=== PATIENT | female | born 1965 | race Two or more races ===

== ENCOUNTER 2016-09-26 12:15 | Emergency (ER) | payer MEDICAID ==
[~2016-09-26] VITALS: Ht 160 cm; Wt 77.1 kg
[~2016-09-26 12:15] MED LIST: ACETAMINOPHEN-1 EAC1 ORAL; ACETAMINOPHEN500 M3 ORAL; AMOXICILLIN500 MG ORAL; AMOXIL250 MG ORAL; BENADRYL25 MG ORAL; CEPHALEXIN500 MG ORAL; CIPRO250 MG ORAL; CIPRO500 MG PO; CIPRO500 MG/51 PO; CLINDAMYCIN HC300 MG ORAL; COLACE100 MG ORAL; CYCLOBENZAPRINE10 MG ORAL; DEBROX15 M1 BOTH EARS; FIORICET1 EA ORAL; FLEET ENEMA133 ML RECTAL; HYDROCORTISON28.4 G5 RC; IBUPROFEN600 MG ORAL; KEFLEX500 MG ORAL; LEVOTHYROXINE25 MCG ORAL; LOSARTAN POTASS25 MG ORAL; MACROBID100 MG ORAL; MAGNESIUM CITR296 M1 PO; METFORMIN HCL500 M1 ORAL; METOPROLOL SUCC25 MG ORAL; NORCO 5-325 TA1 EACH ORAL; PHENAZOPYRIDIN200 MG ORAL; TRAMADOL HCL50 MG ORAL; TYLENOL EXTRA500 MG ORAL; TYLENOL325 MG ORAL; VALACYCLOVIR500 MG ORAL; ZOFRAN ODT4 MG ORAL; [UNRECOGNIZED DRUG - OTHER] TP
[2016-09-26] MEDS ORDERED: AMOXICILLIN500 MG ORAL (12:46)
[2016-09-26] MEDS ORDERED: CORTISPORIN EAR10 ML LEFT EAR (12:46)
[2016-09-26 13:00] VITALS: BP 136/74
--- NOTE | 2016-09-26 13:13 | Emergency Room Report ---
History of Present Illness General Chief Complaint: General Complaint Source: Patient Present Illness [facility] The patient is a 51-year-old female presenting with subjective fever, left ear pain, and sore throat which all began 5 days prior. The patient states that she saw her primary care physician who prescribed her with tetracycline. The patient is unsure of the diagnosis. The patient states that she has experienced no change with the antibiotic. Pain of the left ear is described as an 8/10 dull ache it does not radiate. Cough is described as productive. Pt denies N, V, rash, abd pain, diarrhea, recent travel, CP, SOB Allergies: Coded Allergies: No Known Allergies (Unverified , 06/03/16) Patient History Past Medical History: see triage record Pertinent Family History: none Last Menstrual Period: na Reviewed Nursing Documentation: PMH: Agreed, PSxH: Agreed Nursing Documentation-PMH Past Medical History: No History, Except For Hx Hypertension: Yes Hx Pacemaker: No - HYPOTHYROIDSM Hx Diabetes: Yes Hx Cancer: No Hx Gastrointestinal Problems: Yes Hx Cerebrovascular Accident: No Review of Systems All Other Systems: negative except mentioned in HPI Physical Exam Vital Signs Date Time Temp Pulse Resp B/P Pulse Ox O2 Delivery O2 Flow Rate FiO2 09/26/16 12:23 98.1 94 18 121/78 98 Room Air Sp02 EP Interpretation: reviewed, normal General Appearance: no apparent distress, alert, GCS 15, non-toxic Head: normocephalic, atraumatic Eyes: bilateral eye PERRL, bilateral eye normal inspection ENT: hearing grossly normal, no angioedema, normal voice, uvula midline, nasal congestion, tonsillar swelling, pharyngeal erythema, tonsillar exudate, other - L ear: erythema, white DC. TTP over tragus Neck: full range of motion, supple/symm/no masses Respiratory: chest non-tender, lungs clear, normal breath sounds, no wheezing, speaking full sentences Cardiovascular #1: regular rate, rhythm, no edema Cardiovascular #2: 2+ carotid (R), 2+ carotid (L), 2+ radial (R), 2+ radial (L) , 2+ dorsalis pedis (R), 2+ dorsalis pedis (L) Gastrointestinal: normal bowel sounds, non tender, soft, non-distended, no guarding, no rebound Rectal: deferred Genitourinary: normal inspection, no CVA tenderness Musculoskeletal: back normal, gait/station normal, normal range of motion, non- tender Neurologic: alert, oriented x3, responsive, motor strength/tone normal, sensory intact, speech normal Psychiatric: judgement/insight normal, memory normal, mood/affect normal, no suicidal/homicidal ideation Reflexes: 3+ bicep (R), 3+ bicep (L), 3+ tricep (R), 3+ tricep (L), 3+ knee (R) , 3+ knee (L) Skin: normal color, no rash, warm/dry, well hydrated Lymphatic: no adenopathy Medical Decision Making PA Attestation Dr. Wolf is my supervising physician. Patient management was discussed with my supervising physician Diagnostic Impression: Primary Impression: Pharyngitis, acute Additional Impression: Otitis externa of left ear ER Course The patient is a 51-year-old female presenting with subjective fever, left ear pain, and sore throat which all began 5 days prior. Differential diagnosis include but not limited to otitis externa, otitis media, mastoiditis, sinusitis, pharyngitis PE: vitals WNL. Afebrile. NAD HEENT: L ear: erythema, white DC. TTP over tragus. Bilat tonsillar edema whit exudate. + posterior chain lymphad Lungs CTA bilat. Otherwise exam unremarkable The pt will be DC'ed home with prescription for Cortisporin for L ear otitis externa and will take amoxicillin for pharyngitis. ER precautions given Last Vital Signs Date Time Temp Pulse Resp B/P Pulse Ox O2 Delivery O2 Flow Rate FiO2 09/26/16 13:00 97.9 97 18 136/74 98 Room Air Status: improved Disposition: HOME, SELF-CARE Condition: Improved Scripts Neomycin/Polymyxin B Sulf/Hc* (CORTISPORIN EAR SOLUTION*) 10 Ml Solution 4 DROP LEFT EAR QID, #10 ML 0 Refills Prov: FELIZ DE LOS SANTOS 09/26/16 Referrals: [facility],REFERRING (PCP) Patient Instructions: Otitis Externa, Pharyngitis Additional Instructions: I discussed my findings with the patient. All questions and concerns have been answered. Treatment and medication compliance have been addressed. I advised the patient that they need to follow up with PMD in 3-5 days. Return to ED if pain remains or worsens, cough worsens or remains, you notice blood in your sputum, you notice wheezing, you experience a fever, or if needed for any reason. Patient verbalized understanding of discharge instructions. FELIZ DE LOS SANTOS Sep 26, 2016 13:13
== END 2016-09-26 13:04 | disposition home or self-care (01) ==
LOC: EMR 12:45
DX: J02.9 Acute pharyngitis, unspecified (principal); H60.92 Unspecified otitis externa, left ear; I10 Essential (primary) hypertension; E03.9 Hypothyroidism, unspecified; E11.9 Type 2 diabetes mellitus without complications
CPT/HCPCS: 99282

== ENCOUNTER 2016-10-14 08:44 | Emergency (ER) | payer MEDICAID ==
[~2016-10-14] VITALS: Ht 167.6 cm; Wt 74.8 kg
[~2016-10-14 08:44] MED LIST changes: +CORTISPORIN EAR10 ML LEFT EAR
--- NOTE | 2016-10-14 09:13 | Emergency Room Report ---
History of Present Illness General Chief Complaint: Abdominal Pain Source: Patient Present Illness HPI 51-year-old female presents to ED for evaluation. States that yesterday she noticed some left-sided flank pain radiating towards her groin. Pain is sharp, intermittent, 5/10. No other aggravating or relieving factors. Denies dysuria or hematuria. Denies nausea or vomiting. Denies fevers or chills. Patient also states that she is having persistent pain to her left ear. Was seen here earlier this month, noted to have otitis externa and was discharged on Cortisporin. Patient states she was compliant with the medications but notes persistent pain in her urine. Denies any drainage. Denies any fevers or chills. No aggravating relieving factors. Denies any other associated symptoms Allergies: Coded Allergies: IBUPROFEN (Verified Allergy, Unknown, 10/14/16) Patient History Past Medical History: DM, HTN Past Surgical History: none Pertinent Family History: none Social History: Denies: alcohol use, drug use, smoking Now: No : 3 Para: 3 Immunizations: UTD Reviewed Nursing Documentation: PMH: Agreed, PSxH: Agreed Nursing Documentation-PMH Hx Hypertension: Yes Hx Diabetes: Yes Hx Cancer: No Hx Gastrointestinal Problems: Yes Hx Cerebrovascular Accident: No Review of Systems All Other Systems: negative except mentioned in HPI Physical Exam Vital Signs Date Time Temp Pulse Resp B/P Pulse Ox O2 Delivery O2 Flow Rate FiO2 10/14/16 08:50 98.1 89 16 138/83 99 Room Air Sp02 EP Interpretation: reviewed, normal General Appearance: no apparent distress, alert, GCS 15, non-toxic Head: normocephalic Eyes: bilateral eye PERRL, bilateral eye normal inspection ENT: normal pharynx, uvula midline, other - L ear canal swollen. erythematous Neck: full range of motion, supple/symm/no masses Respiratory: chest non-tender, lungs clear, normal breath sounds, speaking full sentences Cardiovascular #1: normal inspection Gastrointestinal: normal bowel sounds, soft, non-distended, no guarding, no rebound, tenderness - suprapubic Genitourinary: CVA tenderness (L) Musculoskeletal: normal inspection Neurologic: alert, oriented x3, responsive, motor strength/tone normal, sensory intact, speech normal Psychiatric: normal inspection Skin: normal color Lymphatic: normal inspection Medical Decision Making Diagnostic Impression: Primary Impression: Diverticulosis Qualified Codes: K57.30 - Diverticulosis of large intestine without perforation or abscess without bleeding Additional Impression: Otitis externa of left ear Qualified Codes: H60.92 - Unspecified otitis externa, left ear ER Course Hospital Course 51-year-old F presents to ED with LLQ abdominal pain, L ear pain Differential diagnosis includes-kidney stone, diverticulitis, pyelonephritis Clinical course Patient placed on stretcher. After initial history and physical I ordered labs , IV fluids, pain medications and CT scan Labs - no leukocytosis, electrolytes ok, LFTs normal, UA unremarkable CT scan shows diverticulosis, no diverticulitis Upon reassessment, patient states pain has improved. Patient has clinical findings consistent with otitis started. The last visit patient was prescribed Cortisporin. We will prescribe ofloxacin at this time I feel this is a highly complex case requiring extensive working including EKG/ Rhythm strip, Xray/CT/US, Blood/urine lab work, repeat exams while in ED, and administration of strong opiates/narcotics for pain control, admission to hospital or close patient follow up. Diagnosis - diverticulosis, otitis externa left ear Stable and discharged to home with Rx tylenol #3, ofloxacin. Followup with PMD. Return to ED if symptoms recur or worsen Labs Test 10/14/16 09:00 10/14/16 09:20 Urine Color Pale yellow Urine Appearance Clear Urine pH 7 (4.5-8.0) Urine Specific [place] 1.010 (1.005-1.035) Urine Protein Negative (NEGATIVE) Urine Glucose (UA) Negative (NEGATIVE) Urine Ketones Negative (NEGATIVE) Urine Occult Blood Negative (NEGATIVE) Urine Nitrite Negative (NEGATIVE) Urine Bilirubin Negative (NEGATIVE) Urine Urobilinogen Normal MG/DL (0.0-1.0) Urine Leukocyte Esterase 1+ (NEGATIVE) Urine RBC 0-2 /HPF (0 - 2) Urine WBC 0-2 /HPF (0 - 2) Urine Squamous Epithelial Cells Few /LPF (NONE/OCC) Urine Bacteria Few /HPF (NONE) White Blood Count 8.2 K/UL (4.8-10.8) Red Blood Count 4.76 M/UL (4.20-5.40) Hemoglobin 14.5 G/DL (12.0-16.0) Hematocrit 42.9 % (37.0-47.0) Mean Corpuscular Volume 90 FL (80-99) Mean Corpuscular Hemoglobin 30.5 PG (27.0-31.0) Mean Corpuscular Hemoglobin Concent 33.8 G/DL (32.0-36.0) Red Cell Distribution Width 11.8 % (11.6-14.8) Platelet Count 415 K/UL (150-450) Mean Platelet Volume 5.9 FL (6.5-10.1) Neutrophils (%) (Auto) 55.3 % (45.0-75.0) Lymphocytes (%) (Auto) 36.2 % (20.0-45.0) Monocytes (%) (Auto) 5.6 % (1.0-10.0) Eosinophils (%) (Auto) 1.9 % (0.0-3.0) Basophils (%) (Auto) 1.0 % (0.0-2.0) Sodium Level 141 mEQ/L (135-145) Potassium Level 3.5 mEQ/L (3.4-4.9) Chloride Level 103 mEQ/L (98-107) Carbon Dioxide Level 25 mEQ/L (20-30) Anion Gap 13 (5-15) Blood Urea Nitrogen 7 mg/dL (7-23) Creatinine 0.6 mg/dL (0.5-0.9) Estimat Glomerular Filtration Rate > 60 mL/min (>60) Glucose Level 187 mg/dL (74-106) Calcium Level 9.4 mg/dL (8.6-10.2) Total Bilirubin 0.5 mg/dL (0.0-1.2) Aspartate Amino Transf (AST/SGOT) 18 U/L (5-40) Alanine Aminotransferase (ALT/SGPT) 23 U/L (3-33) Alkaline Phosphatase 90 U/L (35-104) Total Protein 7.2 g/dL (6.6-8.7) Albumin 4.1 g/dL (3.5-5.2) Globulin 3.1 g/dL Albumin/Globulin Ratio 1.3 (1.0-2.7) Lipase 31 U/L (< 60) CT/MRI/US Diagnostic Results CT/MRI/US Diagnostic Results : Imaging Test Ordered: CT A/P Impression diverticulosis, no diverticulitis Last Vital Signs Date Time Temp Pulse Resp B/P Pulse Ox O2 Delivery O2 Flow Rate FiO2 10/14/16 08:50 98.1 89 16 138/83 99 Room Air Status: improved Disposition: HOME, SELF-CARE Condition: Stable Scripts Acetaminophen With Codeine (T#3) (TYLENOL #3 TAB*) Y Tab 1 TAB ORAL Q8H Y for For Pain, #20 TAB Prov: TRAN PAVON M.D. 10/14/16 Ofloxacin (OFLOXACIN) 5 Ml Drops 10 DROP OT BID for 10 Days, ML Prov: TRAN PAVNO M.D. 10/14/16 TRAN PAVON M.D. Oct 14, 2016 09:12
[2016-10-14 09:18] LABS: APPEARANCE,URINE CLEAR; KETONES,URINE NEGATIVE (NEGATIVE); LEUKOCYTE ESTERASE ,URINE 1+ (NEGATIVE); NITRITE,URINE NEGATIVE (NEGATIVE); PH,URINE 7 (4.5-8.0); PROTEIN,URINE NEGATIVE (NEGATIVE); UROBILINOGEN,URINE NORMAL MG/DL (0.0-1.0)
[2016-10-14 09:35] LABS: BACTERIA,URINE FEW /HPF; RBC,URINE 0-2 /HPF (0 - 2); SQUAMOUS EPITHELIAL CELL,UR FEW /LPF (NONE/OCC); WBC,URINE 0-2 /HPF (0 - 2)
[2016-10-14 09:36] LABS: EOSINOPHILS % (AUTO) 1.9 % (0.0-3.0); LYMPHOCYTES % (AUTO) 36.2 % (20.0-45.0); MEAN CORPUSCULAR HEMOGLOBIN 30.5 PG (27.0-31.0); MEAN CORPUSCULAR HGB CONC 33.8 G/DL (32.0-36.0); MEAN CORPUSCULAR VOLUME 90 FL (80-99); MEAN PLATELET VOLUME 5.9 FL (6.5-10.1); MONOCYTES % (AUTO) 5.6 % (1.0-10.0); NEUTROPHILS % (AUTO) 55.3 % (45.0-75.0); PLATELET COUNT 415 K/UL (150-450); RED BLOOD COUNT 4.76 M/UL (4.20-5.40); RED CELL DISTRIBUTION WIDTH 11.8 % (11.6-14.8); WHITE BLOOD COUNT 8.2 K/UL (4.8-10.8)
[2016-10-14 09:48] LABS: ALANINE AMINOTRANSFERASE 23 U/L (3-33); ALBUMIN/GLOBULIN RATIO 1.3 (1.0-2.7); ANION GAP 13 (5-15); ASPARTATE AMINO TRANSFERASE 18 U/L (5-40); CALCIUM 9.4 mg/dL (8.6-10.2); CARBON DIOXIDE 25 mEQ/L (20-30); CHLORIDE 103 mEQ/L (98-107); CREATININE 0.6 mg/dL (0.5-0.9); GLOMERULAR FILTRATION RATE > 60 mL/min (>60); HEMOLYSIS 4; LIPASE 31 U/L (< 60); POTASSIUM 3.5 mEQ/L (3.4-4.9); SODIUM 141 mEQ/L (135-145); TOTAL PROTEIN 7.2 g/dL (6.6-8.7)
[2016-10-14 09:59] VITALS: BP 136/83
[2016-10-14] MEDS ORDERED: ACETAMINOPHEN-1 EAC1 ORAL (11:23)
[2016-10-14] MEDS ORDERED: OFLOXACIN5 ML OT (11:23)
[2016-10-14 11:40] VITALS: BP 122/67
--- NOTE | 2016-10-16 09:35 | Diagnostic Imaging Report ---
Clinical Indication: ABD PAIN, left-sided flank pain radiating towards her growing, sharp intermittent 5 out 10 Technique: No oral contrast utilized, per emergency room physician request IV administration nonionic contrast. Venous phase spiral acquisition obtained through the abdomen and pelvis. Multiplanar reconstructions were generated. Total dose length product 918 mGycm. CTDIvol(s) 17 mGy Comparison: 08/10/2013 Findings: The appendix is normal. There is colonic diverticulosis. No evidence of diverticulitis. No small bowel distention or small bowel wall thickening. No free or loculated intraperitoneal air or fluid is evident. Distal esophagus, stomach, duodenum are unremarkable. Liver demonstrates diffuse low attenuation. This is somewhat more striking than on the prior exam. Focal sparing usual location adjacent to the gallbladder fossa is noted. Gallbladder, bile ducts, pancreas, spleen, right adrenal, kidneys are all unremarkable. Left adrenal again demonstrates a small 1 cm adenoma are unchanged No mesenteric or retroperitoneal mass or adenopathy. No pelvic mass or adenopathy. There is a small focal area of infiltration of the subcutaneous fat in the right buttock region which is not evident previously. The uterus is not present, presumed surgically absent. The included lung bases are clear. The bones are unremarkable Impression: No acute process Fatty liver Diverticulosis without evidence of diverticulitis Small focal area of infiltration of the subcutaneous fat of the right buttock. Correlate with any recent history of injection for trauma Evidence of prior hysterectomy The CT scanner at [facility] is accredited by the [employer] and the scans are performed using protocols designed to limit radiation exposure to as low as reasonably achievable to attain images of sufficient resolution adequate for diagnostic evaluation.
== END 2016-10-14 11:42 | disposition home or self-care (01) ==
LOC: EMR 09:17
DX: K57.30 Diverticulosis of large intestine without perforation or abscess without bleeding (principal); H60.92 Unspecified otitis externa, left ear; E11.9 Type 2 diabetes mellitus without complications; I10 Essential (primary) hypertension; Z87.19 Personal history of other diseases of the digestive system; Z88.6 Allergy status to analgesic agent
CPT/HCPCS: 36415; 74177; 80053; 81003; 82962; 83690; 85025; 99284; Q9967

== ENCOUNTER 2016-10-27 17:08 | Emergency (ER) | payer MEDICAID ==
[~2016-10-27] VITALS: Ht 160 cm; Wt 72.6 kg
[~2016-10-27 17:08] MED LIST changes: +OFLOXACIN5 ML OT
[2016-10-27 17:53] VITALS: BP 131/79
[2016-10-27] MEDS ORDERED: PREPARATION H O28 GM TOPIC (18:06)
[2016-10-27] MEDS ORDERED: COLACE100 MG ORAL (18:06)
[2016-10-27 18:11] VITALS: BP 131/79
--- NOTE | 2016-10-27 21:17 | Emergency Room Report ---
History of Present Illness General Chief Complaint: Pain Source: Patient Present Illness HPI The patient is a 51-year-old female presenting with rectal pain which began one week prior. The patient states the pain is a 9/10 burning and is worse with sitting and touch. The patient states that she is also constipated. Pain worse with defecation. The patient denies any radiating pain. The patient denies melena, hematochezia, or blood on toilet paper. The patient denies any other symptoms including nausea, vomiting, fever, chills, dysuria, flank pain, numbness or tingling of extremities Allergies: Coded Allergies: IBUPROFEN (Verified Allergy, Unknown, 10/14/16) Patient History Past Medical History: see triage record Pertinent Family History: none Now: No Reviewed Nursing Documentation: PMH: Agreed, PSxH: Agreed Nursing Documentation-PMH Hx Hypertension: Yes Hx Diabetes: Yes Hx Cancer: No Hx Gastrointestinal Problems: Yes Hx Cerebrovascular Accident: No Review of Systems All Other Systems: negative except mentioned in HPI Physical Exam Vital Signs Date Time Temp Pulse Resp B/P Pulse Ox O2 Delivery O2 Flow Rate FiO2 10/27/16 17:34 98.4 85 18 131/79 96 Room Air Sp02 EP Interpretation: reviewed, normal General Appearance: no apparent distress, alert, GCS 15, non-toxic Head: normocephalic, atraumatic Eyes: bilateral eye PERRL, bilateral eye normal inspection Gastrointestinal: normal bowel sounds, non tender, soft, no mass, non-distended , no guarding, no rebound Rectal: normal rectal tone, hemorrhoids - external, tenderness Genitourinary: normal inspection, no CVA tenderness Musculoskeletal: back normal, gait/station normal, normal range of motion, non- tender Neurologic: alert, oriented x3, responsive, motor strength/tone normal, sensory intact, speech normal Psychiatric: judgement/insight normal, memory normal, mood/affect normal, no suicidal/homicidal ideation Skin: normal color, no rash, warm/dry, well hydrated Lymphatic: no adenopathy Medical Decision Making PA Attestation Dr. Rose is my supervising physician. Patient management was discussed with my supervising physician Diagnostic Impression: Primary Impression: Hemorrhoid ER Course The patient is a 51-year-old female presenting with rectal pain Differential diagnoses considered include but not limited to internal hemorrhoid , external hemorrhoid, cellulitis, abscess, rectal prolapse Physical exam: Vitals within normal limits. no apparent distress. Rectal exam done with [employer] in room Normal rectal tone. No bleeding. There is no external hemorrhoid. Tender to palpation.. Otherwise exam is unremarkable The patient will be discharged home with a prescription for Colace and Preparation H. ER precautions are given. Patient given information regarding sitz baths. Last Vital Signs Date Time Temp Pulse Resp B/P Pulse Ox O2 Delivery O2 Flow Rate FiO2 10/27/16 18:11 98.4 95 18 131/79 96 Room Air Status: improved Disposition: HOME, SELF-CARE Condition: Improved Scripts Docusate Sodium* (COLACE*) 100 Mg Capsule 100 MG ORAL TWICE A DAY, #15 CAP Prov: FELIZ DE LOS SANTOS 10/27/16 Phenyleph/Mineral Oil/Petrolat (Preparation H Ointment) 28 Gm Oint.appl 1 APPLIC TOPIC QID, #28 GM 0 Refills Prov: FELIZ DE LOS SANTOS 10/27/16 Referrals: [facility],REFERRING (PCP) Patient Instructions: How to Take a Sitz Bath, Hemorrhoids Additional Instructions: I discussed my findings with the patient. All questions and concerns have been answered. Treatment and medication compliance have been addressed. I advised the patient that they need to follow up with PMD in 3-5 days. Return to ED if symptoms worsen, new symptoms arise, or if needed for any reason. Patient verbalized understanding of discharge instructions. FELIZ DE LOS SANTOS Oct 27, 2016 21:17
== END 2016-10-27 18:10 | disposition home or self-care (01) ==
LOC: EMR 18:05
DX: K64.9 Unspecified hemorrhoids (principal); I10 Essential (primary) hypertension; E11.9 Type 2 diabetes mellitus without complications; K59.00 Constipation, unspecified; Z88.6 Allergy status to analgesic agent
CPT/HCPCS: 99284

== ENCOUNTER 2016-11-16 13:20 | Emergency (ER) | payer MEDICAID ==
[~2016-11-16] VITALS: Ht 160 cm; Wt 72.6 kg
[~2016-11-16 13:20] MED LIST changes: +PREPARATION H O28 GM TOPIC
[2016-11-16 14:30] LABS: APPEARANCE,URINE CLEAR; KETONES,URINE NEGATIVE (NEGATIVE); LEUKOCYTE ESTERASE ,URINE NEGATIVE (NEGATIVE); NITRITE,URINE NEGATIVE (NEGATIVE); PH,URINE 7 (4.5-8.0); PROTEIN,URINE NEGATIVE (NEGATIVE); UROBILINOGEN,URINE NORMAL MG/DL (0.0-1.0)
--- NOTE | 2016-11-16 15:15 | Emergency Room Report ---
History of Present Illness General Chief Complaint: General Complaint Source: Patient Present Illness HPI 51-year-old female presents to emergency Department complaining of left-sided headache with ear pain x2 days with subjective fevers and chills. Patient also reports low back pain and states that she frequently gets UTIs. She reports frequency and urgency denies dysuria or hematuria. Patient states low back pain is left-sided and she denies fall or injury. Patient denies nausea vomiting or changes in vision. She denies weakness or imbalance. Patient denies abdominal pain however she states the left side of her abdomen feels more swollen than normal. Patient denies constipation or diarrhea . Denies CP, Palpitations, LOC, AMS, dizziness, Changes in Vision, Sensation, paresthesias, or a sudden severe headache. Allergies: Coded Allergies: IBUPROFEN (Verified Allergy, Unknown, 10/14/16) Patient History Past Medical History: see triage record Past Surgical History: none Pertinent Family History: none Last Menstrual Period: hysterectomy Now: No Immunizations: UTD Reviewed Nursing Documentation: PMH: Agreed, PSxH: Agreed Nursing Documentation-PMH Past Medical History: No History, Except For Hx Hypertension: Yes Hx Diabetes: Yes Hx Cancer: No Hx Gastrointestinal Problems: Yes Hx Cerebrovascular Accident: No Review of Systems All Other Systems: negative except mentioned in HPI Physical Exam Vital Signs Date Time Temp Pulse Resp B/P Pulse Ox O2 Delivery O2 Flow Rate FiO2 11/16/16 13:29 98.1 84 16 153/95 98 Sp02 EP Interpretation: reviewed, normal General Appearance: no apparent distress, alert, GCS 15, non-toxic Head: normocephalic, atraumatic Eyes: bilateral eye PERRL, bilateral eye normal inspection ENT: hearing grossly normal, normal pharynx, no angioedema, normal voice, uvula midline, moist mucus membranes, nasal congestion, other - left TM is erythematous and bulging with moderate cerumen in the ear canal, no lesions or evidence of otitis externa. Neck: full range of motion, no meningismus, no bony tend, supple/symm/no masses Respiratory: chest non-tender, lungs clear, normal breath sounds, speaking full sentences Cardiovascular #1: regular rate, rhythm, no edema, normal capillary refill Gastrointestinal: normal bowel sounds, non tender, soft, no guarding, no rebound, other - Negative [place] signs, Negative MacBurney's sign, Negative Rosvigns Sign, Negative Psoas, No Peritoneal signs. no obvious swelling noted on visual inspection. Rectal: deferred Genitourinary: normal inspection, CVA tenderness (L) Musculoskeletal: back normal, gait/station normal, normal range of motion, non- tender, no calf tenderness Neurologic: alert, oriented x3, responsive, motor strength/tone normal, sensory intact, speech normal Psychiatric: judgement/insight normal, memory normal, mood/affect normal, no suicidal/homicidal ideation Skin: normal color, no rash, warm/dry, well hydrated Lymphatic: no adenopathy Medical Decision Making PA Attestation Dr. lang is my supervising Physician whom patient management has been discussed with. Diagnostic Impression: Primary Impression: Otitis media Qualified Codes: H66.92 - Otitis media, unspecified, left ear Additional Impression: Back pain Qualified Codes: M54.5 - Low back pain ER Course 51-year-old female presents to emergency Department complaining of left-sided headache with ear pain x2 days with subjective fevers and chills. Patient also reports low back pain and states that she frequently gets UTIs. She reports frequency and urgency denies dysuria or hematuria. Patient states low back pain is left-sided and she denies fall or injury. Patient denies nausea vomiting or changes in vision. She denies weakness or imbalance. Patient denies abdominal pain however she states the left side of her abdomen feels more swollen than normal. Patient denies constipation or diarrhea. Ddx considered but are not limited to OM, OE, mastoiditis, TM perforation, FB, UTI, pylelo, kidney stones, musculoskeletal pain, vertigo, SAH Vital signs: are WNL, pt. is afebrile H&PE are most consistent with otitis media ORDERS: none required at this time, the diagnosis is clinical -OTOSCOPY: left TM is erythematous and bulging. - UA: unremarkable no evidence to suggest infection or kidney stones no rbc's ED INTERVENTIONS: None required at this time. DISCHARGE: At this time pt. is stable for d/c to home. Will provide printed patient care instructions, and any necessary prescriptions. Care plan and follow up instructions have been discussed with the patient prior to discharge. Labs Test 11/16/16 14:00 Urine Color Pale yellow Urine Appearance Clear Urine pH 7 (4.5-8.0) Urine Specific [place] 1.005 (1.005-1.035) Urine Protein Negative (NEGATIVE) Urine Glucose (UA) Negative (NEGATIVE) Urine Ketones Negative (NEGATIVE) Urine Occult Blood Negative (NEGATIVE) Urine Nitrite Negative (NEGATIVE) Urine Bilirubin Negative (NEGATIVE) Urine Urobilinogen Normal MG/DL (0.0-1.0) Urine Leukocyte Esterase Negative (NEGATIVE) Last Vital Signs Date Time Temp Pulse Resp B/P Pulse Ox O2 Delivery O2 Flow Rate FiO2 11/16/16 13:29 98.1 84 16 153/95 98 Disposition: HOME, SELF-CARE Condition: Stable Scripts Acetaminophen* (TYLENOL EXTRA STRENGTH*) 500 Mg Tablet 500 MG ORAL Q8H, #30 TAB 0 Refills Prov: Odalys Zuniga 11/16/16 Amoxicillin* (AMOXIL*) 500 Mg Capsule 500 MG ORAL BID for 10 Days, #20 CAP Prov: Odalys Zuniga 11/16/16 Referrals: [facility],REFERRING (PCP) Patient Instructions: Back Pain, Adult, [id number], Otitis Media, Adult, Easy -to-Read Additional Instructions: Take medications as directed. Follow up with PCP in 3-5 days Return sooner to ED if new symptoms occur, or current symptoms become worse. - Please note that this Emergency Department Report was dictated using [employer] superintendent technology software, occasionally this can lead to erroneous entry secondary to interpretation by the dictation equipment. Odalys Zuniga Nov 16, 2016 15:15
[2016-11-16] MEDS ORDERED: AMOXICILLIN500 MG ORAL (15:17)
[2016-11-16] MEDS ORDERED: TYLENOL EXTRA500 MG ORAL (15:17)
[2016-11-16 15:30] VITALS: BP 127/72
== END 2016-11-16 15:30 | disposition home or self-care (01) ==
LOC: EMR 14:36
DX: M54.5 Low back pain (principal); H66.92 Otitis media, unspecified, left ear; I10 Essential (primary) hypertension; E11.9 Type 2 diabetes mellitus without complications; Z90.710 Acquired absence of both cervix and uterus; Z88.6 Allergy status to analgesic agent
CPT/HCPCS: 81003; 99284

== ENCOUNTER 2016-11-26 12:37 | Emergency (ER) | payer MEDICAID ==
[~2016-11-26] VITALS: Ht 160 cm; Wt 72.6 kg
--- NOTE | 2016-11-26 13:13 | Emergency Room Report ---
History of Present Illness General Chief Complaint: Abdominal Pain Source: Patient Present Illness HPI 51-year-old female presents to emergency Department complaining of 9/10 in severity left lower quadrant abdominal pain in addition to left ear pain that radiates to the left side of the jaw and causes a mild headache x3 months. Patient states she's been fighting a recurrent left-sided ear infection with multiple types of drops with no relief. Patient states that yesterday she had a fever of 101 denies taking medications prior to arrival. Patient has a history of diverticulosis denies nausea vomiting diarrhea or constipation. Patient states that she believes the left side of her stomach is more swollen than normal. Denies CP, Palpitations, LOC, AMS, dizziness, Changes in Vision, Sensation, paresthesias, or a sudden severe headache. Allergies: Coded Allergies: IBUPROFEN (Verified Allergy, Unknown, 10/14/16) Patient History Past Medical History: see triage record Past Surgical History: none Pertinent Family History: none Now: No Immunizations: UTD Reviewed Nursing Documentation: PMH: Agreed, PSxH: Agreed Nursing Documentation-PMH Hx Hypertension: Yes Hx Diabetes: Yes Hx Cancer: No Hx Gastrointestinal Problems: Yes Hx Cerebrovascular Accident: No Physical Exam Vital Signs Date Time Temp Pulse Resp B/P Pulse Ox O2 Delivery O2 Flow Rate FiO2 11/26/16 12:50 98.1 80 18 120/87 100 Room Air Sp02 EP Interpretation: reviewed, normal General Appearance: no apparent distress, alert, GCS 15, non-toxic Head: normocephalic, atraumatic Eyes: bilateral eye PERRL, bilateral eye normal inspection ENT: hearing grossly normal, normal pharynx, no angioedema, normal voice, uvula midline, moist mucus membranes, other - Left ear canal has opaque crusting noted in the canal, normal appearing TM, erythema surrounds the white crusting noted. no pre-auricular LAD, no evidene of mastoidits. Neck: full range of motion, supple/symm/no masses Respiratory: chest non-tender, lungs clear, normal breath sounds, speaking full sentences Cardiovascular #1: regular rate, rhythm, no edema Gastrointestinal: normal bowel sounds, soft, no bruit, non-distended, no guarding, no hernia, no pulsatile mass, no rebound, other - mild TTP to the LLQ , Negative Britt signs, Negative MacBurney's sign, Negative Rosvigns Sign, Negative Psoas, No Peritoneal signs. Rectal: deferred Genitourinary: normal inspection, no CVA tenderness Musculoskeletal: back normal, gait/station normal, normal range of motion, non- tender, no calf tenderness Neurologic: alert, oriented x3, responsive, motor strength/tone normal, sensory intact, speech normal Psychiatric: judgement/insight normal, memory normal, mood/affect normal, no suicidal/homicidal ideation Skin: normal color, no rash, warm/dry, well hydrated Lymphatic: no adenopathy Medical Decision Making PA Attestation Dr. Henderson is my supervising Physician whom patient management has been discussed with. Diagnostic Impression: Primary Impression: Abdominal pain Additional Impressions: History of diverticulosis Otitis externa of left ear Qualified Codes: H60.92 - Unspecified otitis externa, left ear ER Course 51-year-old female presents to emergency Department complaining of 9/10 in severity left lower quadrant abdominal pain in addition to left ear pain that radiates to the left side of the jaw and causes a mild headache x3 months. Patient states she's been fighting a recurrent left-sided ear infection with multiple types of drops with no relief. Patient states that yesterday she had a fever of 101 denies taking medications prior to arrival. Patient has a history of diverticulosis denies nausea vomiting diarrhea or constipation. Patient states that she believes the left side of her stomach is more swollen than normal. Ddx considered but are not limited to Diverticulitis, acute appy, diarrhea,UC, PUD, GE, pancreatitis, gallstone Vital signs: are WNL, pt. is afebrile H&PE are most consistent with recurrent otitis externa in DM patient, and exacerbation of chronic abdominal condition will r/o acute infection. ORDERS: -CBC: unremarkable no evidence of acute infection -CMP: electrolytes ok. -Lipase: WNL UA: moderate epithelial, few bacterial, no WBC's suggests contamination rather than acute UTI. ED INTERVENTIONS: -650mg Tylenol PO DISCHARGE: At this time pt. is stable for d/c to home. Will provide printed patient care instructions, and any necessary prescriptions. Care plan and follow up instructions have been discussed with the patient prior to discharge. Labs Test 11/26/16 13:14 11/26/16 13:31 White Blood Count 9.6 K/UL (4.8-10.8) Red Blood Count 5.02 M/UL (4.20-5.40) Hemoglobin 14.9 G/DL (12.0-16.0) Hematocrit 44.7 % (37.0-47.0) Mean Corpuscular Volume 89 FL (80-99) Mean Corpuscular Hemoglobin 29.6 PG (27.0-31.0) Mean Corpuscular Hemoglobin Concent 33.2 G/DL (32.0-36.0) Red Cell Distribution Width 12.1 % (11.6-14.8) Platelet Count 383 K/UL (150-450) Mean Platelet Volume 6.5 FL (6.5-10.1) Neutrophils (%) (Auto) 59.1 % (45.0-75.0) Lymphocytes (%) (Auto) 31.9 % (20.0-45.0) Monocytes (%) (Auto) 6.6 % (1.0-10.0) Eosinophils (%) (Auto) 1.6 % (0.0-3.0) Basophils (%) (Auto) 0.9 % (0.0-2.0) Sodium Level 137 mEQ/L (135-145) Potassium Level 4.1 mEQ/L (3.4-4.9) Chloride Level 97 mEQ/L (98-107) Carbon Dioxide Level 21 mEQ/L (20-30) Anion Gap 19 (5-15) Blood Urea Nitrogen 10 mg/dL (7-23) Creatinine 0.6 mg/dL (0.5-0.9) Estimat Glomerular Filtration Rate > 60 mL/min (>60) Glucose Level 108 mg/dL (74-106) Calcium Level 9.2 mg/dL (8.6-10.2) Total Bilirubin 0.2 mg/dL (0.0-1.2) Aspartate Amino Transf (AST/SGOT) 20 U/L (5-40) Alanine Aminotransferase (ALT/SGPT) 20 U/L (3-33) Alkaline Phosphatase 97 U/L (35-104) Total Protein 7.2 g/dL (6.6-8.7) Albumin 4.0 g/dL (3.5-5.2) Globulin 3.2 g/dL Albumin/Globulin Ratio 1.2 (1.0-2.7) Lipase 35 U/L (< 60) Urine Color Pale yellow Urine Appearance Slightly cloudy Urine pH 6.5 (4.5-8.0) Urine Specific [place] 1.015 (1.005-1.035) Urine Protein 1+ (NEGATIVE) Urine Glucose (UA) Negative (NEGATIVE) Urine Ketones Negative (NEGATIVE) Urine Occult Blood 1+ (NEGATIVE) Urine Nitrite Negative (NEGATIVE) Urine Bilirubin Negative (NEGATIVE) Urine Urobilinogen Normal MG/DL (0.0-1.0) Urine Leukocyte Esterase 1+ (NEGATIVE) Urine RBC 0-2 /HPF (0 - 2) Urine WBC 0-2 /HPF (0 - 2) Urine Squamous Epithelial Cells Moderate /LPF (NONE/OCC) Urine Calcium Oxalate Crystals Few /LPF (NONE) Urine Bacteria Few /HPF (NONE) Last Vital Signs Date Time Temp Pulse Resp B/P Pulse Ox O2 Delivery O2 Flow Rate FiO2 11/26/16 12:50 98.1 80 18 120/87 100 Room Air Disposition: HOME, SELF-CARE Condition: Stable Scripts Docusate Sodium* (COLACE*) 100 Mg Capsule 100 MG ORAL TWICE A DAY for 7 Days, #14 CAP Prov: Odalys Zuniga 11/26/16 Tolnaftate (TOLNAFTATE) 10 Ml Solution 3 DROP OTIC TID for 7 Days, #10 ML instill 3-4 drops into the left ear Three times daily for 7 days. Prov: Odalys Zuniga 11/26/16 Patient Instructions: Abdominal Pain, Adult Additional Instructions: Take medications as directed. Follow up with PCP in 3 days Return sooner to ED if new symptoms occur, or current symptoms become worse. - Please note that this Emergency Department Report was dictated using [employer] front end engineer technology software, occasionally this can lead to erroneous entry secondary to interpretation by the dictation equipment. Odalys Zuniga Nov 26, 2016 13:13
[2016-11-26 14:12] LABS: APPEARANCE,URINE SLIGHTLY CLOUDY; KETONES,URINE NEGATIVE (NEGATIVE); LEUKOCYTE ESTERASE ,URINE 1+ (NEGATIVE); NITRITE,URINE NEGATIVE (NEGATIVE); PH,URINE 6.5 (4.5-8.0); PROTEIN,URINE 1+ (NEGATIVE); UROBILINOGEN,URINE NORMAL MG/DL (0.0-1.0)
[2016-11-26 14:18] LABS: ALANINE AMINOTRANSFERASE 20 U/L (3-33); ALBUMIN/GLOBULIN RATIO 1.2 (1.0-2.7); ANION GAP 19 (5-15); ASPARTATE AMINO TRANSFERASE 20 U/L (5-40); CALCIUM 9.2 mg/dL (8.6-10.2); CARBON DIOXIDE 21 mEQ/L (20-30); CHLORIDE 97 mEQ/L (98-107); CREATININE 0.6 mg/dL (0.5-0.9); GLOMERULAR FILTRATION RATE > 60 mL/min (>60); HEMOLYSIS 58; LIPASE 35 U/L (< 60); POTASSIUM 4.1 mEQ/L (3.4-4.9); SODIUM 137 mEQ/L (135-145); TOTAL PROTEIN 7.2 g/dL (6.6-8.7)
[2016-11-26 14:28] LABS: BASOPHILS % (AUTO) 0.9 % (0.0-2.0); EOSINOPHILS % (AUTO) 1.6 % (0.0-3.0); LYMPHOCYTES % (AUTO) 31.9 % (20.0-45.0); MEAN CORPUSCULAR HEMOGLOBIN 29.6 PG (27.0-31.0); MEAN CORPUSCULAR HGB CONC 33.2 G/DL (32.0-36.0); MEAN CORPUSCULAR VOLUME 89 FL (80-99); MEAN PLATELET VOLUME 6.5 FL (6.5-10.1); MONOCYTES % (AUTO) 6.6 % (1.0-10.0); NEUTROPHILS % (AUTO) 59.1 % (45.0-75.0); PLATELET COUNT 383 K/UL (150-450); RED BLOOD COUNT 5.02 M/UL (4.20-5.40); RED CELL DISTRIBUTION WIDTH 12.1 % (11.6-14.8); WHITE BLOOD COUNT 9.6 K/UL (4.8-10.8)
[2016-11-26 14:39] LABS: BACTERIA,URINE FEW /HPF; RBC,URINE 0-2 /HPF (0 - 2); SQUAMOUS EPITHELIAL CELL,UR MODERATE /LPF (NONE/OCC); WBC,URINE 0-2 /HPF (0 - 2)
[2016-11-26 14:40] LABS: CALCIUM OXALATE CRYSTALS,UR FEW /LPF
[2016-11-26] MEDS ORDERED: COLACE100 MG ORAL (14:53)
[2016-11-26] MEDS ORDERED: TOLNAFTATE10 ML OTIC (14:53)
[2016-11-26 15:19] VITALS: BP 120/82
== END 2016-11-26 15:19 | disposition home or self-care (01) ==
LOC: EMR 13:15
DX: R10.32 Left lower quadrant pain (principal); K57.90 Diverticulosis of intestine, part unspecified, without perforation or abscess without bleeding; H60.92 Unspecified otitis externa, left ear; I10 Essential (primary) hypertension; E11.9 Type 2 diabetes mellitus without complications; Z88.6 Allergy status to analgesic agent
CPT/HCPCS: 36415; 80053; 81003; 83690; 85025; 99284

== ENCOUNTER 2016-12-26 19:01 | Emergency (ER) | payer MEDICAID ==
[~2016-12-26] VITALS: Ht 152.4 cm; Wt 72.6 kg
[~2016-12-26 19:01] MED LIST changes: +TOLNAFTATE10 ML OTIC
[2016-12-26 19:40] VITALS: BP 108/83
[2016-12-26 19:52] LABS: BASOPHILS % (AUTO) 0.5 % (0.0-2.0); EOSINOPHILS % (AUTO) 0.1 % (0.0-3.0); LYMPHOCYTES % (AUTO) 20.3 % (20.0-45.0); MEAN CORPUSCULAR HEMOGLOBIN 31.9 PG (27.0-31.0); MEAN CORPUSCULAR HGB CONC 34.6 G/DL (32.0-36.0); MEAN CORPUSCULAR VOLUME 92 FL (80-99); MONOCYTES % (AUTO) 1.7 % (1.0-10.0); NEUTROPHILS % (AUTO) 77.5 % (45.0-75.0); PLATELET COUNT 366 K/UL (150-450); RED BLOOD COUNT 4.74 M/UL (4.20-5.40); RED CELL DISTRIBUTION WIDTH 11.8 % (11.6-14.8); WHITE BLOOD COUNT 8.7 K/UL (4.8-10.8)
[2016-12-26 20:09] LABS: ALANINE AMINOTRANSFERASE 22 U/L (3-33); ALBUMIN/GLOBULIN RATIO 1.3 (1.0-2.7); ANION GAP 20 (5-15); ASPARTATE AMINO TRANSFERASE 30 U/L (5-40); CALCIUM 9.3 mg/dL (8.6-10.2); CARBON DIOXIDE 20 mEQ/L (20-30); CHLORIDE 94 mEQ/L (98-107); CREATININE 0.9 mg/dL (0.5-0.9); GLOMERULAR FILTRATION RATE > 60 mL/min (>60); HEMOLYSIS 164; POTASSIUM 4.9 mEQ/L (3.4-4.9); SODIUM 134 mEQ/L (135-145); TOTAL PROTEIN 7.4 g/dL (6.6-8.7)
[2016-12-26 20:10] LABS: APPEARANCE,URINE CLEAR; KETONES,URINE 1+ (NEGATIVE); LEUKOCYTE ESTERASE ,URINE NEGATIVE (NEGATIVE); NITRITE,URINE NEGATIVE (NEGATIVE); PH,URINE 7 (4.5-8.0); PROTEIN,URINE NEGATIVE (NEGATIVE); UROBILINOGEN,URINE NORMAL MG/DL (0.0-1.0)
[2016-12-26 20:22] LABS: BACTERIA,URINE OCCASIONAL /HPF; RBC,URINE 0-2 /HPF (0 - 2); SQUAMOUS EPITHELIAL CELL,UR FEW /LPF (NONE/OCC); WBC,URINE 0-2 /HPF (0 - 2)
--- NOTE | 2016-12-26 22:30 | Emergency Room Report ---
History of Present Illness General Chief Complaint: Abnormal Labs Source: Patient Present Illness HPI This patient has a history of diabetes. She takes metformin for diabetes. She states that she lost her glucometer for a few days and hasn't been checking her blood sugar. She states that she is feeling fatigued and lightheaded today so she did take her blood sugar and it was over 400. She admits that she does not follow a diabetic diet. She states that she has been taking her normal dose of metformin. She denies fever or chills. She denies cough or congestion. She denies chest pain or shortness of breath. She has no other complaints. Allergies: Coded Allergies: IBUPROFEN (Verified Allergy, Unknown, 10/14/16) Patient History Past Medical History: see triage record, DM, HTN, GERD Social History: Denies: alcohol use, drug use, smoking Now: No Reviewed Nursing Documentation: PMH: Agreed, PSxH: Agreed Nursing Documentation-PMH Hx Hypertension: Yes Hx Diabetes: Yes Hx Cancer: No Hx Gastrointestinal Problems: Yes Hx Cerebrovascular Accident: No Review of Systems All Other Systems: negative except mentioned in HPI Physical Exam Vital Signs Date Time Temp Pulse Resp B/P Pulse Ox O2 Delivery O2 Flow Rate FiO2 12/26/16 19:19 98.1 104 17 142/86 98 Room Air Sp02 EP Interpretation: reviewed, normal General Appearance: no apparent distress, alert, GCS 15, non-toxic Head: normocephalic, atraumatic Eyes: bilateral eye PERRL, bilateral eye normal inspection ENT: hearing grossly normal, normal pharynx, no angioedema, normal voice Neck: full range of motion, supple/symm/no masses Respiratory: chest non-tender, lungs clear, normal breath sounds, speaking full sentences Cardiovascular #1: regular rate, rhythm, no edema Gastrointestinal: normal bowel sounds, non tender, soft, non-distended, no guarding, no rebound Rectal: deferred Genitourinary: normal inspection Musculoskeletal: back normal, gait/station normal, normal range of motion, non- tender Neurologic: alert, oriented x3, responsive, motor strength/tone normal, sensory intact, speech normal Psychiatric: judgement/insight normal, memory normal, mood/affect normal, no suicidal/homicidal ideation Skin: normal color, no rash, warm/dry, well hydrated Medical Decision Making Diagnostic Impression: Primary Impression: Hyperglycemia due to type 2 diabetes mellitus ER Course This patient presents with hyperglycemia. There is no evidence of DKA. This is likely secondary to diet indiscretion. I did not in identify any source of infection. There is evidence of urinary tract infection or pneumonia or intra- abdominal infection. The patient overall evaluation is benign. The patient is given aggressive IV fluids. The patient's blood sugar declined from over 400 to 280. The patient had significant improvement in her symptoms and desire to go home. I did educate the patient on the importance of a diabetic diet and medication compliance. I also educated on the importance of aggressive hydration and close monitoring of her blood sugar. She was given return precautions and followup instructions. Labs Test 12/26/16 19:30 White Blood Count 8.7 K/UL (4.8-10.8) Red Blood Count 4.74 M/UL (4.20-5.40) Hemoglobin 15.1 G/DL (12.0-16.0) Hematocrit 43.8 % (37.0-47.0) Mean Corpuscular Volume 92 FL (80-99) Mean Corpuscular Hemoglobin 31.9 PG (27.0-31.0) Mean Corpuscular Hemoglobin Concent 34.6 G/DL (32.0-36.0) Red Cell Distribution Width 11.8 % (11.6-14.8) Platelet Count 366 K/UL (150-450) Mean Platelet Volume 6.0 FL (6.5-10.1) Neutrophils (%) (Auto) 77.5 % (45.0-75.0) Lymphocytes (%) (Auto) 20.3 % (20.0-45.0) Monocytes (%) (Auto) 1.7 % (1.0-10.0) Eosinophils (%) (Auto) 0.1 % (0.0-3.0) Basophils (%) (Auto) 0.5 % (0.0-2.0) Urine Color Pale yellow Urine Appearance Clear Urine pH 7 (4.5-8.0) Urine Specific [place] 1.010 (1.005-1.035) Urine Protein Negative (NEGATIVE) Urine Glucose (UA) 4+ (NEGATIVE) Urine Ketones 1+ (NEGATIVE) Urine Occult Blood 1+ (NEGATIVE) Urine Nitrite Negative (NEGATIVE) Urine Bilirubin Negative (NEGATIVE) Urine Urobilinogen Normal MG/DL (0.0-1.0) Urine Leukocyte Esterase Negative (NEGATIVE) Urine RBC 0-2 /HPF (0 - 2) Urine WBC 0-2 /HPF (0 - 2) Urine Squamous Epithelial Cells Few /LPF (NONE/OCC) Urine Bacteria Occasional /HPF (NONE) Sodium Level 134 mEQ/L (135-145) Potassium Level 4.9 mEQ/L (3.4-4.9) Chloride Level 94 mEQ/L (98-107) Carbon Dioxide Level 20 mEQ/L (20-30) Anion Gap 20 (5-15) Blood Urea Nitrogen 10 mg/dL (7-23) Creatinine 0.9 mg/dL (0.5-0.9) Estimat Glomerular Filtration Rate > 60 mL/min (>60) Glucose Level 447 mg/dL (74-106) Calcium Level 9.3 mg/dL (8.6-10.2) Magnesium Level 2.0 mg/dL (1.7-2.5) Total Bilirubin 0.2 mg/dL (0.0-1.2) Aspartate Amino Transf (AST/SGOT) 30 U/L (5-40) Alanine Aminotransferase (ALT/SGPT) 22 U/L (3-33) Alkaline Phosphatase 107 U/L (35-104) Total Protein 7.4 g/dL (6.6-8.7) Albumin 4.2 g/dL (3.5-5.2) Globulin 3.2 g/dL Albumin/Globulin Ratio 1.3 (1.0-2.7) Acetone Level Negative (NEGATIVE) EKG Diagnostic Results Rate: normal Rhythm: NSR ST Segments: other Other Impression NSST findings. Rhythm Strip Diag. Results EP Interpretation: yes Rate: 90's Rhythm: NSR, no PVC's, no ectopy Last Vital Signs Date Time Temp Pulse Resp B/P Pulse Ox O2 Delivery O2 Flow Rate FiO2 12/26/16 19:40 98.1 84 18 108/83 99 Room Air Disposition: HOME, SELF-CARE Condition: Improved Referrals: NON PHYSICIAN (PCP) EDGARD RAMOS D.O. Dec 26, 2016 22:30
[2016-12-26 22:40] VITALS: BP 117/86
--- NOTE | 2016-12-30 22:34 | Cardiology Report ---
APPROVED REPORT EKG Measurement Heart [id number] Normal sinus rhythm Left anterior fascicular block Minimal voltage criteria for LVH, may be normal variant Nonspecific ST and T wave abnormality Abnormal ECG
== END 2016-12-26 22:40 | disposition home or self-care (01) ==
LOC: EMR 19:16
DX: E11.65 Type 2 diabetes mellitus with hyperglycemia (principal); I10 Essential (primary) hypertension; K21.9 Gastro-esophageal reflux disease without esophagitis; Z88.6 Allergy status to analgesic agent
CPT/HCPCS: 36415; 80053; 81003; 82009; 82962; 83735; 85025; 93005; 96360; 96361

== ENCOUNTER 2017-02-14 17:30 | Emergency (ER) | payer MEDICAID ==
[~2017-02-14] VITALS: Ht 154.9 cm; Wt 72.6 kg
[2017-02-14] MEDS ORDERED: Morphine Sulfate 4mg/ml Inj IVP ONE (18:30)
[2017-02-14 19:20] VITALS: BP 124/86
[2017-02-14 19:23] LABS: APPEARANCE,URINE CLEAR; EOSINOPHILS % (AUTO) 2.1 % (0.0-3.0); KETONES,URINE NEGATIVE (NEGATIVE); LEUKOCYTE ESTERASE ,URINE NEGATIVE (NEGATIVE); LYMPHOCYTES % (AUTO) 37.3 % (20.0-45.0); MEAN CORPUSCULAR HEMOGLOBIN 32.1 PG (27.0-31.0); MEAN CORPUSCULAR VOLUME 89 FL (80-99); MEAN PLATELET VOLUME 5.8 FL (6.5-10.1); MONOCYTES % (AUTO) 6.7 % (1.0-10.0); NEUTROPHILS % (AUTO) 53.1 % (45.0-75.0); NITRITE,URINE NEGATIVE (NEGATIVE); PH,URINE 7 (4.5-8.0); PLATELET COUNT 372 K/UL (150-450); PROTEIN,URINE NEGATIVE (NEGATIVE); UROBILINOGEN,URINE NORMAL MG/DL (0.0-1.0); WHITE BLOOD COUNT 10.3 K/UL (4.8-10.8)
[2017-02-14 19:39] LABS: ALANINE AMINOTRANSFERASE 14 U/L (3-33); ALBUMIN/GLOBULIN RATIO 1.4 (1.0-2.7); ANION GAP 16 (5-15); ASPARTATE AMINO TRANSFERASE 14 U/L (5-40); CALCIUM 9.1 mg/dL (8.6-10.2); CARBON DIOXIDE 25 mEQ/L (20-30); CHLORIDE 100 mEQ/L (98-107); CREATININE 0.6 mg/dL (0.5-0.9); GLOMERULAR FILTRATION RATE > 60 mL/min (>60); HEMOLYSIS 6; LIPASE 35 U/L (< 60); POTASSIUM 3.3 mEQ/L (3.4-4.9); SODIUM 141 mEQ/L (135-145); TOTAL PROTEIN 7.2 g/dL (6.6-8.7)
[2017-02-14 20:44] VITALS: BP 128/79
[2017-02-14] MEDS ORDERED: ACETAMINOPHEN-1 EAC1 ORAL (21:24)
[2017-02-14 21:25] VITALS: BP 128/79
--- NOTE | 2017-02-15 00:10 | Emergency Room Report ---
History of Present Illness General Chief Complaint: Abdominal Pain Source: Patient Present Illness HPI 51-year-old female presents to ED complaining of abdominal pain. Started at 5 PM tonight. Cramping, lower abdominal, 7/10, nonradiating. Denies nausea or vomiting. Denies fevers chills. Denies dysuria or hematuria. No other aggravating or relieving factors. Denies any other associated symptoms Allergies: Coded Allergies: IBUPROFEN (Verified Allergy, Unknown, 10/14/16) Patient History Past Medical History: DM, HTN Past Surgical History: none Pertinent Family History: none Social History: Denies: alcohol use, drug use, smoking Now: No Immunizations: UTD Reviewed Nursing Documentation: PMH: Agreed, PSxH: Agreed Nursing Documentation-PMH Past Medical History: No History, Except For Hx Hypertension: Yes Hx Diabetes: Yes Hx Cancer: No Hx Gastrointestinal Problems: Yes Hx Cerebrovascular Accident: No Review of Systems All Other Systems: negative except mentioned in HPI Physical Exam Vital Signs Date Time Temp Pulse Resp B/P Pulse Ox O2 Delivery O2 Flow Rate FiO2 02/14/17 17:48 98.2 68 16 119/85 98 Room Air Sp02 EP Interpretation: reviewed, normal General Appearance: no apparent distress, alert, GCS 15, non-toxic Head: normocephalic, atraumatic Eyes: bilateral eye PERRL, bilateral eye normal inspection ENT: hearing grossly normal, normal pharynx, no angioedema, normal voice Neck: full range of motion, supple/symm/no masses Respiratory: chest non-tender, lungs clear, normal breath sounds, speaking full sentences Cardiovascular #1: regular rate, rhythm, no edema Cardiovascular #2: 2+ carotid (R), 2+ carotid (L), 2+ radial (R), 2+ radial (L) , 2+ dorsalis pedis (R), 2+ dorsalis pedis (L) Gastrointestinal: normal bowel sounds, soft, non-distended, no guarding, no rebound, tenderness - surpapubic Rectal: deferred Genitourinary: normal inspection, no CVA tenderness Musculoskeletal: back normal, gait/station normal, normal range of motion, non- tender Neurologic: alert, oriented x3, responsive, motor strength/tone normal, sensory intact, speech normal Psychiatric: judgement/insight normal, memory normal, mood/affect normal, no suicidal/homicidal ideation Reflexes: 3+ bicep (R), 3+ bicep (L), 3+ tricep (R), 3+ tricep (L), 3+ knee (R) , 3+ knee (L) Skin: normal color, no rash, warm/dry, well hydrated Lymphatic: no adenopathy Medical Decision Making Diagnostic Impression: Primary Impression: Abdominal pain Qualified Codes: R10.9 - Unspecified abdominal pain ER Course Hospital Course 51-year-old F presents to ED with abdominal pain Differential diagnosis includes-appendicitis, cholecystitis, small bowel obstruction, gastritis, Clinical course Patient placed on stretcher. After initial history and physical I ordered labs , IV fluids, pain medications and CT scan Labs - no leukocytosis, electrolytes ok, LFTs normal, UA unremarkable CT scan shows no acute pathology Reassurance given to the patient. She is well-known to [facility] has been here multiple times for various complaints. Patient has been here multiple times for abdominal pain and workups have always been negative I feel this is a highly complex case requiring extensive working including EKG/ Rhythm strip, Xray/CT/US, Blood/urine lab work, repeat exams while in ED, and administration of strong opiates/narcotics for pain control, admission to hospital or close patient follow up. Diagnosis - abdominal pain Stable and discharged to home. Followup with PMD. Return to ED if symptoms recur or worsen Labs Test 02/14/17 19:04 White Blood Count 10.3 K/UL (4.8-10.8) Red Blood Count 4.80 M/UL (4.20-5.40) Hemoglobin 15.4 G/DL (12.0-16.0) Hematocrit 42.7 % (37.0-47.0) Mean Corpuscular Volume 89 FL (80-99) Mean Corpuscular Hemoglobin 32.1 PG (27.0-31.0) Mean Corpuscular Hemoglobin Concent 36.0 G/DL (32.0-36.0) Red Cell Distribution Width 11.0 % (11.6-14.8) Platelet Count 372 K/UL (150-450) Mean Platelet Volume 5.8 FL (6.5-10.1) Neutrophils (%) (Auto) 53.1 % (45.0-75.0) Lymphocytes (%) (Auto) 37.3 % (20.0-45.0) Monocytes (%) (Auto) 6.7 % (1.0-10.0) Eosinophils (%) (Auto) 2.1 % (0.0-3.0) Basophils (%) (Auto) 1.0 % (0.0-2.0) Urine Color Pale yellow Urine Appearance Clear Urine pH 7 (4.5-8.0) Urine Specific [place] 1.010 (1.005-1.035) Urine Protein Negative (NEGATIVE) Urine Glucose (UA) Negative (NEGATIVE) Urine Ketones Negative (NEGATIVE) Urine Occult Blood Negative (NEGATIVE) Urine Nitrite Negative (NEGATIVE) Urine Bilirubin Negative (NEGATIVE) Urine Urobilinogen Normal MG/DL (0.0-1.0) Urine Leukocyte Esterase Negative (NEGATIVE) Sodium Level 141 mEQ/L (135-145) Potassium Level 3.3 mEQ/L (3.4-4.9) Chloride Level 100 mEQ/L (98-107) Carbon Dioxide Level 25 mEQ/L (20-30) Anion Gap 16 (5-15) Blood Urea Nitrogen 11 mg/dL (7-23) Creatinine 0.6 mg/dL (0.5-0.9) Estimat Glomerular Filtration Rate > 60 mL/min (>60) Glucose Level 114 mg/dL (74-106) Calcium Level 9.1 mg/dL (8.6-10.2) Total Bilirubin 0.2 mg/dL (0.0-1.2) Aspartate Amino Transf (AST/SGOT) 14 U/L (5-40) Alanine Aminotransferase (ALT/SGPT) 14 U/L (3-33) Alkaline Phosphatase 89 U/L (35-104) Total Protein 7.2 g/dL (6.6-8.7) Albumin 4.2 g/dL (3.5-5.2) Globulin 3.0 g/dL Albumin/Globulin Ratio 1.4 (1.0-2.7) Lipase 35 U/L (< 60) CT/MRI/US Diagnostic Results CT/MRI/US Diagnostic Results : Imaging Test Ordered: CT A/P Impression no acute process Last Vital Signs Date Time Temp Pulse Resp B/P Pulse Ox O2 Delivery O2 Flow Rate FiO2 02/14/17 20:44 98.2 82 16 128/79 98 Room Air Status: improved Disposition: HOME, SELF-CARE Condition: Stable Scripts Acetaminophen With Codeine (T#3) (TYLENOL #3 TAB*) Y Tab 1 TAB ORAL Q8H Y for For Pain, #20 TAB Prov: TRAN PAVON M.D. 02/14/17 Referrals: DARIANA WEST (PCP) Patient Instructions: Abdominal Pain, Adult TRAN PAVON M.D. Feb 15, 2017 00:10
--- NOTE | 2017-02-15 08:51 | Diagnostic Imaging Report ---
Indication: Abdominal pain Technique: Continuous helical transaxial imaging of the abdomen and pelvis was obtained from the lung bases to the pubic symphysis during intravenous contrast administration. Coronal 2-D reformats were also obtained. Study obtained in a Siemens sensation [address] Total Dose length Product (DLP): [address] Dose Index Volume (CTDIvol): 18.4 mGy Comparison: None Findings: Lung bases are clear. The liver is hypodense consistent with fatty infiltration. There is a low-density left adrenal nodule measuring 1.5 cm. Gallbladder is unremarkable in appearance. There is no nephrolithiasis or hydronephrosis appreciated. No free fluid or free air appreciated. Diverticula noted in the colon. There is no evidence of diverticulitis. Urinary bladder is unremarkable in appearance. The appendix is normal. Impression: Diverticulosis of the colon. No definite evidence of acute diverticulitis Fatty liver Normal appendix Left adrenal nodule. Consider MR for further evaluation. Findings unchanged. [facility] has communicated the preliminary results to the Emergency Department. Their findings are largely concordant with this report. The CT scanner at [facility] is accredited by the [employer] and the scans are performed using dose optimization techniques as appropriate to a performed exam including Automatic Exposure control.
== END 2017-02-14 21:25 | disposition home or self-care (01) ==
LOC: EMR 18:20
DX: R10.9 Unspecified abdominal pain (principal); Z88.6 Allergy status to analgesic agent; E11.9 Type 2 diabetes mellitus without complications; I10 Essential (primary) hypertension
CPT/HCPCS: 36415; 74177; 80053; 81003; 83690; 85025; 96374; 96375; 99284; J2270; Q9967

== ENCOUNTER 2017-03-25 14:12 | Emergency (ER) | payer MEDICAID ==
[~2017-03-25] VITALS: Ht 160 cm; Wt 68.0 kg
--- NOTE | 2017-03-25 14:54 | Emergency Room Report ---
History of Present Illness General Chief Complaint: To Be Triaged Present Illness HPI 51 YO Female presents to the ED c/o: 05/25 in severity right foot pain, tenderness since yesterday, reports burning sensation, pt. reports swelling, denies hx of trauma, skin color changes. denies hx of gout. Patient reports history of diabetes and states that her sugar has been higher than normal the past few days in the 200s. Patient states she takes oral medication twice daily and is to for more medication this afternoon. Patient denies nausea, vomiting, fevers, chills, abdominal pain. Denies numbness tingling or loss of sensation or gross motor movements of the extremities, incontinence of bowel or bladder. Denies CP, Palpitations, LOC, AMS, dizziness, Changes in Vision, Sensation, paresthesias, or a sudden severe headache. Allergies: Coded Allergies: IBUPROFEN (Verified Allergy, Unknown, 10/14/16) Patient History Past Medical History: see triage record Past Surgical History: none Pertinent Family History: none Now: No Reviewed Nursing Documentation: PMH: Agreed, PSxH: Agreed Nursing Documentation-PMH Hx Hypertension: Yes Hx Diabetes: Yes Hx Cancer: No Hx Gastrointestinal Problems: Yes Hx Cerebrovascular Accident: No Review of Systems All Other Systems: negative except mentioned in HPI Physical Exam Sp02 EP Interpretation: reviewed, normal General Appearance: no apparent distress, alert, GCS 15, non-toxic Head: normocephalic, atraumatic Eyes: bilateral eye PERRL, bilateral eye normal inspection ENT: hearing grossly normal, normal pharynx, no angioedema, normal voice Neck: full range of motion, supple/symm/no masses Respiratory: lungs clear, normal breath sounds, speaking full sentences Cardiovascular #1: regular rate, rhythm, no edema, normal capillary refill Rectal: deferred Musculoskeletal: back normal, gait/station normal, normal range of motion, tender - pt. has ttp to the plantar aspect and dorsum of the right foot to light touch, no appreciable swelling, no erythema, no bruiising or obvious deformity, equal pulses bilaterally. Neurologic: alert, oriented x3, responsive, motor strength/tone normal, sensory intact, speech normal Psychiatric: judgement/insight normal, memory normal, mood/affect normal Skin: normal inspection, normal color, no rash, warm/dry, well hydrated, other - no open lesions, no evidence of slivers or ulcers. no swelling noted, no erythema. Medical Decision Making PA Attestation Dr. lang is my supervising Physician whom patient management has been discussed with. Diagnostic Impression: Primary Impression: foot pain ER Course Pt. presents to the ED c/o: 05/25 in severity right foot pain, tenderness since yesterday, reports burning sensation, pt. reports swelling, denies hx of trauma , skin color changes. denies hx of gout. Ddx considered but are not limited to Fracture, dislocation, contusion, Sprain/ Strain/Spasm, cellulitis, FB, pressure ulcer, neuropathy, circulatory compromise. Vital signs: are WNL, pt. is afebrile: BP 111/70, HR 82, 98% oxygen on RA H&PE are most consistent with soft tissue pain, possible neuropathy, no bony tenderness, circulation is intact. ORDERS: - X-ray not warranted as no hx of trauma, no bony ttp, no obvious deformity. ED INTERVENTIONS: - Pt. offered tylenol, she declines and will have rx written. d/w pt. that I do not suspect fractures due to ttp to superficial touch both plantar and dorsum of foot, d/w pt. circulation was good, and that with her hx of DM possible neuropathy. regardless I do not suspect an emergent condition at this time. with current presentation pt. is stable for close outpatient follow up. DISCHARGE: At this time pt. is stable for d/c to home. Will provide printed patient care instructions, and any necessary prescriptions. Care plan and follow up instructions have been discussed with the patient prior to discharge. Disposition: HOME, SELF-CARE Condition: Stable Scripts Acetaminophen With Codeine (T#3) (TYLENOL #3 TAB*) Y Tab 1 TAB ORAL Q6H Y for For Pain, #12 TAB Prov: Odalys Zuniga 03/25/17 Patient Instructions: Diabetic Neuropathy, Pain Without a Known Cause Additional Instructions: Take medications as directed. Follow up with a Primary Care Provider in 3-5 days, even if your symptoms have resolved. --Please review list of primary care clinics, if you do not already have a primary care provider Return sooner to ED if new symptoms occur, or current symptoms become worse. - Please note that this Emergency Department Report was dictated using [employer]icipate[employer] door mechanic technology software, occasionally this can lead to erroneous entry secondary to interpretation by the dictation equipment. Odalys Zuniga Mar 25, 2017 14:54
[2017-03-25] MEDS ORDERED: ACETAMINOPHEN-1 EAC1 ORAL (14:56)
[2017-03-25 16:10] VITALS: BP 111/70
== END 2017-03-25 16:10 | disposition home or self-care (01) ==
LOC: EMR 15:50
DX: M79.671 Pain in right foot (principal); E11.9 Type 2 diabetes mellitus without complications; I10 Essential (primary) hypertension; Z88.6 Allergy status to analgesic agent
CPT/HCPCS: 99283

== ENCOUNTER 2017-06-01 11:09 | Emergency (ER) | payer MEDICAID ==
[~2017-06-01] VITALS: Ht 165.1 cm; Wt 72.6 kg
[2017-06-01 11:23] VITALS: BP 143/93
--- NOTE | 2017-06-01 11:45 | Emergency Room Report ---
History of Present Illness General Chief Complaint: General Complaint Source: Patient, Medical Record Present Illness HPI 51-year-old female in no significant past medical history presenting with one week of sore throat. Patient states that she feels sore throat is on the right versus the left. States that she has pain with eating and drinking, but still has been able to eat and drink normally. Denies any change of voice. Also noted that she had some redness in her bilateral eyes, with her right eye having some redness and clear discharge, also complaining of clear nasal discharge. No fever or chills No neck pain Allergies: Coded Allergies: IBUPROFEN (Verified Allergy, Unknown, 10/14/16) Patient History Past Medical History: see triage record Past Surgical History: none Pertinent Family History: none Last Menstrual Period: menopause Reviewed Nursing Documentation: PMH: Agreed, PSxH: Agreed Nursing Documentation-PMH Past Medical History: No History, Except For Hx Hypertension: Yes Hx Diabetes: Yes Hx Cancer: No Hx Gastrointestinal Problems: Yes Hx Cerebrovascular Accident: No Review of Systems All Other Systems: negative except mentioned in HPI Physical Exam Vital Signs Date Time Temp Pulse Resp B/P (MAP) Pulse Ox O2 Delivery O2 Flow Rate FiO2 06/01/17 11:13 97.9 86 17 143/93 98 Sp02 EP Interpretation: reviewed, normal General Appearance: normal inspection, well appearing, no apparent distress, alert, GCS 15, non-toxic Head: normocephalic, atraumatic Eyes: right eye other - Right-sided periorbital mild erythema in the lower lid , nontender. Bilateral eyes with slight conjunctival redness, clear discharge, bilateral eye normal inspection, bilateral eye PERRL, bilateral eye EOMI ENT: normal voice, moist mucus membranes, other - Posterior pharyngeal erythema , no exudates. No tonsillar enlargement or uvula enlargement uvula is midline. No signs of NET MAKER Neck: normal inspection, full range of motion, supple, other - Nontender bilateral neck, no masses palpated, no erythema, no fluctuance Respiratory: normal inspection, lungs clear, normal breath sounds, no respiratory distress, no retraction, no wheezing, speaking full sentences, chest symmetrical Cardiovascular #1: normal inspection, regular rate, rhythm, no edema, normal capillary refill Cardiovascular #2: 2+ radial (R), 2+ radial (L) Gastrointestinal: normal inspection, non tender, soft, non-distended, no guarding Musculoskeletal: normal inspection, back normal, normal range of motion, non- tender Neurologic: normal inspection, alert, oriented x3, responsive, motor strength/ tone normal, sensory intact, normal gait, speech normal Psychiatric: normal inspection, judgement/insight normal, memory normal Skin: normal inspection, normal color, no rash, warm/dry, well hydrated, normal turgor Medical Decision Making Diagnostic Impression: Primary Impression: Viral conjunctivitis of both eyes Additional Impression: Viral pharyngitis ER Course 51-year-old female with sore throat, itchy eyes, runny nose DDX: viral vs. infectious mononucleosis vs. bacterial pharyngitis vs. allergies Other serious causes such as NET MAKER / RPA / deep space neck infection history/physical most consistent with viral pharyngitis Plan: Motrin, supportive care. Abx not indicated at this time ER course: Patient remains stable in ED. Pt states improvement of pain with motrin. Disposition: Patient will be discharged to home. Patient will be given tylenol and eyedrops. Patient will follow up with primary care doctor within 5 days. Strict return precautions discussed with patient such as worsening throat pain/swelling, dysphagia, high fever or chills, shortness of breath, abdominal pain, which may indicate severe illness. Patient verbalized understanding and agreed with plan. Please note that this Emergency Department Report was dictated using [employer]le[employer] Farms[employer] surgeon technology software, occasionally this can lead to erroneous entry secondary to interpretation by the dictation equipment. Last Vital Signs Date Time Temp Pulse Resp B/P (MAP) Pulse Ox O2 Delivery O2 Flow Rate FiO2 06/01/17 11:23 97.9 17 143/93 98 06/01/17 11:13 86 Disposition: HOME, SELF-CARE Condition: Improved Scripts Tetrahydrozoline Hcl/Zn Sulf (EYE DROPS ALLERGY RELIEF) 15 Ml Drops 15 ML OP BID Y for Itching for 7 Days, #1 TUBE 0 Refills Prov: Dimitri Ambrosio M.D. 06/01/17 Acetaminophen* (ACETAMINOPHEN EXTRA STRENGTH*) 500 Mg Tablet 500 MG ORAL Q8H Y for Fever/Headache/Mild Pain, #30 TAB 0 Refills Prov: Dimitri Ambrosio M.D. 06/01/17 Dimitri Ambrosio M.D. Jun 01, 2017 11:45
[2017-06-01] MEDS ORDERED: EYE DROPS ALLER15 ML OP (11:47)
[2017-06-01] MEDS ORDERED: ACETAMINOPHEN500 M3 ORAL (11:47)
[2017-06-01 12:11] VITALS: BP 143/93
== END 2017-06-01 12:11 | disposition home or self-care (01) ==
LOC: EMR 11:46
DX: B30.9 Viral conjunctivitis, unspecified (principal); J02.8 Acute pharyngitis due to other specified organisms; B97.89 Other viral agents as the cause of diseases classified elsewhere; E11.9 Type 2 diabetes mellitus without complications; I10 Essential (primary) hypertension
CPT/HCPCS: 99284

== ENCOUNTER 2017-06-06 08:40 | Emergency (ER) | payer MEDICAID ==
[~2017-06-06] VITALS: Ht 154.9 cm; Wt 72.6 kg
[~2017-06-06 08:40] MED LIST changes: +EYE DROPS ALLER15 ML OP
[2017-06-06 09:09] VITALS: BP 118/66
[2017-06-06] MEDS ORDERED: Metoclopramide 10mg/2ml Inj IVP ONE (09:15)
[2017-06-06] MEDS ORDERED: DiphenhydrAMINE 50mg/ml Inj IVP ONE (09:15)
[2017-06-06 09:40] LABS: APPEARANCE,URINE CLEAR; KETONES,URINE NEGATIVE (NEGATIVE); LEUKOCYTE ESTERASE ,URINE NEGATIVE (NEGATIVE); NITRITE,URINE NEGATIVE (NEGATIVE); PH,URINE 6.5 (4.5-8.0); PROTEIN,URINE NEGATIVE (NEGATIVE); UROBILINOGEN,URINE NORMAL MG/DL (0.0-1.0)
[2017-06-06 09:41] LABS: BASOPHILS % (AUTO) 0.5 % (0.0-2.0); LYMPHOCYTES % (AUTO) 31.7 % (20.0-45.0); MEAN CORPUSCULAR HEMOGLOBIN 31.3 PG (27.0-31.0); MEAN CORPUSCULAR HGB CONC 34.8 G/DL (32.0-36.0); MEAN CORPUSCULAR VOLUME 90 FL (80-99); MEAN PLATELET VOLUME 6.3 FL (6.5-10.1); MONOCYTES % (AUTO) 6.3 % (1.0-10.0); NEUTROPHILS % (AUTO) 59.5 % (45.0-75.0); PLATELET COUNT 385 K/UL (150-450); RED BLOOD COUNT 4.62 M/UL (4.20-5.40); RED CELL DISTRIBUTION WIDTH 11.6 % (11.6-14.8); WHITE BLOOD COUNT 8.2 K/UL (4.8-10.8)
[2017-06-06 09:53] LABS: ALANINE AMINOTRANSFERASE 17 U/L (3-33); ALBUMIN/GLOBULIN RATIO 1.4 (1.0-2.7); ANION GAP 12 (5-15); ASPARTATE AMINO TRANSFERASE 16 U/L (5-40); CALCIUM 8.9 mg/dL (8.6-10.2); CARBON DIOXIDE 27 mEQ/L (20-30); CHLORIDE 100 mEQ/L (98-107); CREATININE 0.6 mg/dL (0.5-0.9); GLOMERULAR FILTRATION RATE > 60 mL/min (>60); HEMOLYSIS 1; LIPASE 24 U/L (< 60); POTASSIUM 3.5 mEQ/L (3.4-4.9); SODIUM 139 mEQ/L (135-145); TOTAL PROTEIN 6.9 g/dL (6.6-8.7)
[2017-06-06 10:30] VITALS: BP 101/65
[2017-06-06] MEDS ORDERED: TYLENOL EXTRA500 MG ORAL (10:37)
[2017-06-06 10:57] VITALS: BP 120/59
--- NOTE | 2017-06-06 14:56 | Emergency Room Report ---
History of Present Illness General Chief Complaint: Dizziness Source: Patient Present Illness HPI 51-year-old female presents to ED for evaluation. States she's been having intermittent headache for the last 2 weeks. Pain is throbbing, 5 at 10, nonradiating. Denies any photophobia, blurry vision. Denies nausea or vomiting. States he feels dizzy and weak. Patient is a diabetic. Denies chest pain or shortness of breath. No other aggravating relieving factors. Denies any other associated symptoms Allergies: Coded Allergies: IBUPROFEN (Verified Allergy, Unknown, 10/14/16) Patient History Past Medical History: DM Past Surgical History: none Pertinent Family History: none Social History: Denies: smoking, alcohol use, drug use Now: No Immunizations: UTD Reviewed Nursing Documentation: PMH: Agreed, PSxH: Agreed Nursing Documentation-PMH Hx Hypertension: Yes Hx Diabetes: Yes Hx Cancer: No Hx Gastrointestinal Problems: Yes Hx Cerebrovascular Accident: No Review of Systems All Other Systems: negative except mentioned in HPI Physical Exam Vital Signs Date Time Temp Pulse Resp B/P (MAP) Pulse Ox O2 Delivery O2 Flow Rate FiO2 06/06/17 08:45 97.5 76 14 123/87 99 Room Air Sp02 EP Interpretation: reviewed, normal General Appearance: no apparent distress, alert, GCS 15, non-toxic Head: normocephalic, atraumatic Eyes: bilateral eye normal inspection, bilateral eye PERRL ENT: hearing grossly normal, normal pharynx, no angioedema, normal voice Neck: full range of motion, supple/symm/no masses Respiratory: chest non-tender, lungs clear, normal breath sounds, speaking full sentences Cardiovascular #1: regular rate, rhythm, no edema Cardiovascular #2: 2+ carotid (R), 2+ carotid (L), 2+ radial (R), 2+ radial (L) , 2+ dorsalis pedis (R), 2+ dorsalis pedis (L) Gastrointestinal: normal bowel sounds, non tender, soft, non-distended, no guarding, no rebound Rectal: deferred Genitourinary: normal inspection, no CVA tenderness Musculoskeletal: back normal, gait/station normal, normal range of motion, non- tender Neurologic: alert, oriented x3, responsive, motor strength/tone normal, sensory intact, speech normal Psychiatric: judgement/insight normal, memory normal, mood/affect normal, no suicidal/homicidal ideation Reflexes: 3+ bicep (R), 3+ bicep (L), 3+ tricep (R), 3+ tricep (L), 3+ knee (R) , 3+ knee (L) Skin: normal color, no rash, warm/dry, well hydrated Lymphatic: no adenopathy Medical Decision Making Diagnostic Impression: Primary Impression: Headache Qualified Codes: R51 - Headache ER Course Hospital Course 51-year-old female presents to ED complaining of headaches , feeling weak Differential diagnoses include: tension headache, migraine, dehydration, hyperglycemia Clinical course Patient placed on stretcher. After initial history and physical I ordered labs , IV fluids, Reglan, Tylenol and Benadryl. Labs reviewed- electrolytes ok, glucose 186, no leukocytosis, hemoglobin/ hematocrit stable Upon reassessment patient states pain has improved. Patient feels better wishes to go home. Given the lack of fever, nuchal rigidity or neurological findings my suspicion for intracranial pathology is low patient be safely discharged to home. i. I feel this is a highly complex case requiring extensive working including EKG/Rhythm strip, Xray/CT/US, Blood/urine lab work, repeat exams while in ED, and administration of strong opiates/narcotics for pain control, admission to hospital or close patient follow up. Diagnosis - headache stable and discharged to home with Rx Tylenol. f/up with PMD. return to ED if symptoms recur/worsen. Labs Test 06/06/17 09:20 White Blood Count 8.2 K/UL (4.8-10.8) Red Blood Count 4.62 M/UL (4.20-5.40) Hemoglobin 14.5 G/DL (12.0-16.0) Hematocrit 41.6 % (37.0-47.0) Mean Corpuscular Volume 90 FL (80-99) Mean Corpuscular Hemoglobin 31.3 PG (27.0-31.0) Mean Corpuscular Hemoglobin Concent 34.8 G/DL (32.0-36.0) Red Cell Distribution Width 11.6 % (11.6-14.8) Platelet Count 385 K/UL (150-450) Mean Platelet Volume 6.3 FL (6.5-10.1) Neutrophils (%) (Auto) 59.5 % (45.0-75.0) Lymphocytes (%) (Auto) 31.7 % (20.0-45.0) Monocytes (%) (Auto) 6.3 % (1.0-10.0) Eosinophils (%) (Auto) 2.0 % (0.0-3.0) Basophils (%) (Auto) 0.5 % (0.0-2.0) Urine Color Pale yellow Urine Appearance Clear Urine pH 6.5 (4.5-8.0) Urine Specific [place] 1.010 (1.005-1.035) Urine Protein Negative (NEGATIVE) Urine Glucose (UA) Negative (NEGATIVE) Urine Ketones Negative (NEGATIVE) Urine Occult Blood Negative (NEGATIVE) Urine Nitrite Negative (NEGATIVE) Urine Bilirubin Negative (NEGATIVE) Urine Urobilinogen Normal MG/DL (0.0-1.0) Urine Leukocyte Esterase Negative (NEGATIVE) Sodium Level 139 mEQ/L (135-145) Potassium Level 3.5 mEQ/L (3.4-4.9) Chloride Level 100 mEQ/L (98-107) Carbon Dioxide Level 27 mEQ/L (20-30) Anion Gap 12 (5-15) Blood Urea Nitrogen 10 mg/dL (7-23) Creatinine 0.6 mg/dL (0.5-0.9) Estimat Glomerular Filtration Rate > 60 mL/min (>60) Glucose Level 186 mg/dL (74-106) Calcium Level 8.9 mg/dL (8.6-10.2) Total Bilirubin 0.4 mg/dL (0.0-1.2) Aspartate Amino Transf (AST/SGOT) 16 U/L (5-40) Alanine Aminotransferase (ALT/SGPT) 17 U/L (3-33) Alkaline Phosphatase 84 U/L (35-104) Total Protein 6.9 g/dL (6.6-8.7) Albumin 4.1 g/dL (3.5-5.2) Globulin 2.8 g/dL Albumin/Globulin Ratio 1.4 (1.0-2.7) Lipase 24 U/L (< 60) Last Vital Signs Date Time Temp Pulse Resp B/P (MAP) Pulse Ox O2 Delivery O2 Flow Rate FiO2 06/06/17 10:57 97.5 63 15 120/59 99 Room Air 59 Status: improved Disposition: HOME, SELF-CARE Condition: Stable Scripts Acetaminophen* (TYLENOL EXTRA STRENGTH*) 500 Mg Tablet 500 MG ORAL Q8H Y for Prn Headache/Temp > 101, #30 TAB 0 Refills Prov: TRAN PAVON M.D. 06/06/17 Referrals: [facility],REFERRING (PCP) Patient Instructions: Migraine Headache TRAN PAVON M.D. Jun 06, 2017 14:56
== END 2017-06-06 11:03 | disposition home or self-care (01) ==
LOC: EMR 09:10
DX: R51 Headache (principal); I10 Essential (primary) hypertension; E11.9 Type 2 diabetes mellitus without complications; Z88.6 Allergy status to analgesic agent
CPT/HCPCS: 36415; 80053; 81003; 82962; 83690; 85025; 96374; 96375; 99284; J1200; J2765

== ENCOUNTER 2017-07-19 10:30 | Emergency (ER) | payer MEDICAID ==
[~2017-07-19] VITALS: Ht 154.9 cm; Wt 72.6 kg
[2017-07-19] MEDS ORDERED: DiphenhydrAMINE 50mg/ml Inj IVP ONE (11:00)
[2017-07-19] MEDS ORDERED: Metoclopramide 10mg/2ml Inj IVP ONE (11:00)
[2017-07-19 11:19] VITALS: BP 112/73
[2017-07-19 12:31] VITALS: BP 130/75
[2017-07-19] MEDS ORDERED: ZOFRAN4 MG ORAL (13:12)
[2017-07-19 13:29] VITALS: BP 145/74
--- NOTE | 2017-07-25 23:41 | Emergency Room Report ---
History of Present Illness General Chief Complaint: General Complaint Source: Patient, Medical Record Present Illness HPI Patient is a 51-year-old female brought in by self after increased eye discomfort and headache. Patient prior history of glaucoma and takes eyedrops. The patient had previous history of similar type headaches. She denies any vomiting. She had not been having any fever. Allergies: Coded Allergies: IBUPROFEN (Verified Allergy, Unknown, 10/14/16) Patient History Past Medical History: see triage record Last Menstrual Period: menopause Reviewed Nursing Documentation: PMH: Agreed, PSxH: Agreed Nursing Documentation-PMH Past Medical History: No History, Except For Hx Hypertension: Yes Hx Diabetes: Yes Hx Cancer: No Hx Gastrointestinal Problems: Yes Hx Cerebrovascular Accident: No Review of Systems All Other Systems: negative except mentioned in HPI Physical Exam Vital Signs Date Time Temp Pulse Resp B/P (MAP) Pulse Ox O2 Delivery O2 Flow Rate FiO2 07/19/17 10:37 98.1 84 16 126/76 98 Room Air Sp02 EP Interpretation: reviewed, normal General Appearance: normal inspection, well appearing, no apparent distress, alert, GCS 15 Head: atraumatic ENT: normal ENT inspection, hearing grossly normal, normal voice Neck: normal inspection, full range of motion, supple, no bony tend Respiratory: normal inspection, lungs clear, normal breath sounds, no respiratory distress, no retraction, no wheezing Cardiovascular #1: regular rate, rhythm, no edema Gastrointestinal: normal inspection, normal bowel sounds, non tender, soft, no guarding, no hernia Genitourinary: no CVA tenderness Musculoskeletal: normal inspection, back normal, normal range of motion Neurologic: normal inspection, alert, oriented x3, responsive, food writer III-XII nml as tested, speech normal Psychiatric: normal inspection, judgement/insight normal, mood/affect normal Skin: normal inspection, normal color, no rash Medical Decision Making Diagnostic Impression: Primary Impression: Headache ER Course Patient presented for headache. Differential diagnoses included but was not limited to skull fracture, subarachnoid hemorrhage, meningitis, aneurysm, mass lesion, intracranial hemorrhage. Because of complexity of patient's case imaging studies were ordered.Patient was given IV pain medications with improvement in her headache. The patient is advised to follow up with primary care doctor in 1-2 days. Patient is advised to return if any worsening condition or if any changes in status that are concerning.The patient is given prescription for Zofran. She is advised followup with her vc++ developer. Last Vital Signs Date Time Temp Pulse Resp B/P (MAP) Pulse Ox O2 Delivery O2 Flow Rate FiO2 07/19/17 13:29 76 16 145/74 100 Room Air 07/19/17 10:37 98.1 Status: improved Disposition: HOME, SELF-CARE Condition: Stable Scripts Ondansetron (Zofran) 4 Mg Tablet 4 MG ORAL Q6H Y for Nausea & Vomiting, #15 TAB 0 Refills Prov: Shahbaz Barreto 07/19/17 Patient Instructions: Abdominal Pain, Adult Shahbaz Barreto Jul 25, 2017 23:41
== END 2017-07-19 13:32 | disposition home or self-care (01) ==
LOC: EMR 10:50
DX: R51 Headache (principal); Z88.6 Allergy status to analgesic agent; I10 Essential (primary) hypertension
CPT/HCPCS: 96374; 96375; 99284; J1200; J2765

== ENCOUNTER 2017-09-25 19:38 | Emergency (ER) | payer MEDICAID ==
[~2017-09-25] VITALS: Ht 154.9 cm; Wt 72.6 kg
[~2017-09-25 19:38] MED LIST changes: +ZOFRAN4 MG ORAL
[2017-09-25] MEDS ORDERED: Norco 5mg/325mg tab ORAL ONE (20:30)
--- NOTE | 2017-09-25 20:58 | Emergency Room Report ---
History of Present Illness General Chief Complaint: Lower Extremity Injury Source: Patient Present Illness HPI 52-year-old female presents to the emergency department complaining of 10 out of 10 in severity localized pain to the plantar aspect of the right foot since yesterday. Patient states that she does recall stepping on something several months ago that caused her pain in the same area but resolved on its own. He denies erythema, swelling or bruising. Patient denies trauma or fall. She states pain is exacerbated upon walking. Denies calf pain, denies lower extremity edema. Denies numbness tingling or loss of sensation or gross motor movements of the extremities, incontinence of bowel or bladder. Denies CP, Palpitations, LOC, AMS, dizziness, Changes in Vision, Sensation, paresthesias, or a sudden severe headache. She also reports intermittent nonproductive cough she denies fevers or chills, sore throat or nasal congestion. Allergies: Coded Allergies: IBUPROFEN (Verified Allergy, Unknown, 10/14/16) Patient History Past Medical History: see triage record Past Surgical History: none Pertinent Family History: none Last Menstrual Period: NA Now: No Immunizations: UTD Reviewed Nursing Documentation: PMH: Agreed, PSxH: Agreed Nursing Documentation-PMH Hx Hypertension: Yes Hx Diabetes: Yes Hx Cancer: No Hx Gastrointestinal Problems: Yes Hx Cerebrovascular Accident: No Review of Systems All Other Systems: negative except mentioned in HPI Physical Exam Vital Signs Date Time Temp Pulse Resp B/P (MAP) Pulse Ox O2 Delivery O2 Flow Rate FiO2 09/25/17 19:43 98.2 86 18 128/84 99 Room Air Sp02 EP Interpretation: reviewed, normal General Appearance: no apparent distress, alert, GCS 15, non-toxic Head: normocephalic, atraumatic ENT: hearing grossly normal, normal voice Neck: full range of motion Respiratory: chest non-tender, lungs clear, normal breath sounds, no respiratory distress, no wheezing, speaking full sentences Cardiovascular #1: regular rate, rhythm, no edema Gastrointestinal: normal bowel sounds, non tender, soft Rectal: deferred Genitourinary: normal inspection Musculoskeletal: back normal, gait/station normal - with cane, normal range of motion, tender - medial plantar localized ttp to the right foot, no erythema, no swelling or obvious deformity Neurologic: alert, oriented x3, responsive, motor strength/tone normal, sensory intact, normal gait - with cane, speech normal, grossly normal Psychiatric: judgement/insight normal Skin: normal color, no rash, warm/dry, well hydrated, other - other than superficial callous noted to area of symptoms, no obvious embeded FB, no erythema, no increased temperature to palpation. Lymphatic: no adenopathy Medical Decision Making SAMANTHA Attnguyễnation Dr. lang is my supervising Physician whom patient management has been discussed with. Diagnostic Impression: Primary Impression: foot pain Additional Impression: Cough ER Course 52-year-old female presents to the emergency department complaining of 10 out of 10 in severity localized pain to the plantar aspect of the right foot since yesterday. Patient states that she does recall stepping on something several months ago that caused her pain in the same area but resolved on its own. He denies erythema, swelling or bruising. Patient denies trauma or fall. She states pain is exacerbated upon walking. Denies calf pain, denies lower extremity edema. Denies numbness tingling or loss of sensation or gross motor movements of the extremities, incontinence of bowel or bladder. Denies CP, Palpitations, LOC, AMS, dizziness, Changes in Vision, Sensation, paresthesias, or a sudden severe headache. She also reports intermittent nonproductive cough she denies fevers or chills, sore throat or nasal congestion. Ddx considered but are not limited to Fracture, dislocation, contusion, Sprain/ Strain/Spasm, plantar fasciitis, embedded FB, cellulitis, pressure sore just to name a few. Vital signs: are WNL, pt. is afebrile H&PE are most consistent with musculoskeletal injury will perform imaging to r/ o fractures/dislocations. --no Obvious embedded foreign body, no open wounds. Location of tenderness is not consistent with plantar fasciitis. ORDERS: - X-ray Right foot 3 views - no obvious radio-opaque foreign body. negative for fx, Dislocation, or significant soft tissue injury, per preliminary read in ED, and signed by SAMANTHA Zuniga, my supervising physician has reviewed, and agrees with my interpretation. ED INTERVENTIONS: - Toradol Im (pt requests denies PO ) -I do not identify an emergent condition at this time. With current presentation , pt. is stable for close outpatient follow up and conservative treatment. D/ w pt. to return promptly to ED with worsening or new symptoms.- Pt. (and or responsible democrat) verbalizes' understanding and agreement with proposed treatment plan.proposed treatment plan. DISCHARGE: At this time pt. is stable for d/c to home. Will provide printed patient care instructions, and any necessary prescriptions. Care plan and follow up instructions have been discussed with the patient prior to discharge. Other X-Ray Diagnostic Results Other X-Ray Diagnostic Results : X-Ray ordered: Right Foot # of Views/Limited Vs Complete: 3 View Indication: Pain EP Interpretation: Yes PA Xray: Interpretation reviewed, by supervising MD, and agrees with findings. Interpretation: no dislocation, no soft tissue swelling, no fractures Impression: No acute disease - no obvious radio-opaque foreign body Electronically Signed by: Odalys Zuniga PA-C Last Vital Signs Date Time Temp Pulse Resp B/P (MAP) Pulse Ox O2 Delivery O2 Flow Rate FiO2 09/25/17 19:43 98.2 86 18 128/84 99 Room Air Disposition: HOME, SELF-CARE Condition: Stable Scripts D-Methorphan Hb/Prometh Hcl* (PROMETHAZINE-DM SYRUP*) 118 Ml Syrup 5 ML ORAL Q6H Y for For Cough, #118 ML 0 Refills Prov: Odalys Zuniga 09/25/17 Acetaminophen* (TYLENOL EXTRA STRENGTH*) 500 Mg Tablet 500 MG ORAL Q6H, #20 TAB 0 Refills Prov: Odalys Zuniga 09/25/17 Patient Instructions: Pain Without a Known Cause Additional Instructions: Take medications as directed. Follow up with a Primary Care Provider in 3-5 days for PODIATRY EVALUATION, even if your symptoms have resolved. -no obvious foreign body on xray of the right foot. --Please review list of primary care clinics, if you do not already have a primary care provider Return sooner to ED if new symptoms occur, or current symptoms become worse. - Please note that this Emergency Department Report was dictated using Modac[employer] tinter technology software, occasionally this can lead to erroneous entry secondary to interpretation by the dictation equipment. Odalys Zuniga Sep 25, 2017 20:58
[2017-09-25] MEDS ORDERED: TYLENOL EXTRA500 MG ORAL (21:00)
[2017-09-25] MEDS ORDERED: Ketorolac 60mg Inj IM ONE (21:00)
[2017-09-25] MEDS ORDERED: PROMETHAZINE-D118 ML ORAL (21:10)
[2017-09-25 21:25] VITALS: BP 128/84
--- NOTE | 2017-09-26 13:02 | Diagnostic Imaging Report ---
Indication: Pain Technique: XRAY Foot Complete R Comparison: None Findings: There is no acute fracture or dislocation. There are hammertoe deformities of the second through fifth digits and likely pes cavus. Joint spaces are preserved. No radiopaque foreign body seen. Impression: No acute fracture or dislocation. Additional findings as above.
== END 2017-09-25 21:25 | disposition home or self-care (01) ==
LOC: EMR 20:06
DX: M79.671 Pain in right foot (principal); R05 Cough; I10 Essential (primary) hypertension; E11.9 Type 2 diabetes mellitus without complications; Z88.6 Allergy status to analgesic agent
CPT/HCPCS: 96372; 99283

== ENCOUNTER 2017-09-28 21:30 | Emergency (ER) | payer MEDICAID ==
[~2017-09-28] VITALS: Ht 154.9 cm; Wt 72.6 kg
[~2017-09-28 21:30] MED LIST changes: +PROMETHAZINE-D118 ML ORAL
[2017-09-28] MEDS ORDERED: DiphenhydrAMINE 50mg/ml Inj IVP ONE (22:00)
[2017-09-28] MEDS ORDERED: BENADRYL25 MG ORAL (22:03)
--- NOTE | 2017-09-28 22:04 | Emergency Room Report ---
History of Present Illness General Chief Complaint: Skin Rash/Abscess Source: Patient Present Illness [facility] This is a 52-year-old female with a history diabetes. She presents with chief complaint of itching and rash. She has a history of itchiness which she takes Zyrtec. She developed a rash or urticaria to the left leg and torso area starting this evening. No relief with Zyrtec. No new medication. No new food. Denies any other complaint. No nausea no vomiting. Allergies: Coded Allergies: IBUPROFEN (Verified Allergy, Unknown, 10/14/16) Patient History Past Medical History: see triage record, old chart reviewed, DM Past Surgical History: none Pertinent Family History: none Last Menstrual Period: MENOPAUSE Now: No Immunizations: other Reviewed Nursing Documentation: PMH: Agreed, PSxH: Agreed Nursing Documentation-PMH Hx Hypertension: Yes Hx Diabetes: Yes Hx Cancer: No Hx Gastrointestinal Problems: Yes Hx Cerebrovascular Accident: No Review of Systems Eye: Denies: eye pain, blurred vision ENT: Denies: ear pain, nose congestion, throat swelling Respiratory: Denies: cough, shortness of breath Cardiovascular: Denies: chest pain, palpitations Gastrointestinal: Denies: abdominal pain, diarrhea, nausea, vomiting Musculoskeletal: Denies: back pain, joint pain Skin: Reports: rash Neurological: Denies: headache, numbness Endocrine: Denies: increased thirst, increased urine Hematologic/Lymphatic: Denies: easy bruising All Other Systems: negative except mentioned in HPI Physical Exam Vital Signs Date Time Temp Pulse Resp B/P (MAP) Pulse Ox O2 Delivery O2 Flow Rate FiO2 09/28/17 21:31 97.9 84 16 139/91 97 Room Air vitals unremarkable Sp02 EP Interpretation: reviewed, normal General Appearance: well appearing, no apparent distress, alert Head: normocephalic, atraumatic Eyes: bilateral eye PERRL, bilateral eye EOMI ENT: hearing grossly normal, normal pharynx Neck: full range of motion, supple, no meningismus Respiratory: chest non-tender, lungs clear, normal breath sounds Cardiovascular #1: regular rate, rhythm, no murmur Gastrointestinal: normal bowel sounds, non tender, no mass, no organomegaly, no bruit, non-distended Musculoskeletal: back normal, gait/station normal, normal range of motion Psychiatric: mood/affect normal Skin: warm/dry, rash - Small scattered urticaria on lower extremity and torso Medical Decision Making Diagnostic Impression: Primary Impression: Urticaria of unknown origin ER Course Patient with allergic reaction/urticaria. No evidence of anaphylaxis. She will need referral to see an director of extension work for further testing. Better after Benadryl. We'll hold off steroids since he is a diabetic. Last Vital Signs Date Time Temp Pulse Resp B/P (MAP) Pulse Ox O2 Delivery O2 Flow Rate FiO2 09/28/17 21:31 97.9 84 16 139/91 97 Room Air Status: improved Disposition: HOME, SELF-CARE Condition: Stable Scripts Diphenhydramine Hcl* (BENADRYL*) 25 Mg Capsule 50 MG ORAL Q6H Y for Itching, #30 CAP Prov: CASEY BLAKE M.D. 09/28/17 Referrals: [facility],REFERRING (PCP) Additional Instructions: Followup with your DrHumaira in 7 days. You may benefit from referral to see an director of extension work. Return if symptom worsen. CASEY BLAKE M.D. Sep 28, 2017 22:04
[2017-09-28 22:10] VITALS: BP 124/89
== END 2017-09-28 22:26 | disposition home or self-care (01) ==
LOC: EMR 21:54
DX: L50.9 Urticaria, unspecified (principal); I10 Essential (primary) hypertension; E11.9 Type 2 diabetes mellitus without complications; Z88.6 Allergy status to analgesic agent
CPT/HCPCS: 96374; 99284; J1200

== ENCOUNTER 2017-10-08 09:18 | Emergency (ER) | payer MEDICAID ==
[~2017-10-08] VITALS: Ht 149.9 cm; Wt 104.3 kg
[2017-10-08] MEDS ORDERED: ROBAXIN-750750 MG PO (09:42)
[2017-10-08] MEDS ORDERED: Ketorolac 60mg Inj IM ONE (09:45)
[2017-10-08 09:51] VITALS: BP 138/91
[2017-10-08 09:52] VITALS: BP 138/91
--- NOTE | 2017-10-09 07:36 | Emergency Room Report ---
History of Present Illness General Chief Complaint: Back Pain-No Injury Source: Patient Present Illness HPI Patient 52 female presented after increased low back pain. Patient prior history of intermittent back pain. She denied any focal locations of pain. She reported having pain to the low back which did not radiate. She denies any dysuria or fever. She denied prior trauma. She denied vomiting Allergies: Coded Allergies: No Known Allergies (Unverified , 10/08/17) Patient History Past Medical History: see triage record Reviewed Nursing Documentation: PMH: Agreed, PSxH: Agreed Nursing Documentation-PMH Hx Hypertension: Yes Hx Diabetes: Yes Hx Cancer: No Hx Gastrointestinal Problems: Yes Hx Cerebrovascular Accident: No Review of Systems All Other Systems: negative except mentioned in HPI Physical Exam Vital Signs Date Time Temp Pulse Resp B/P (MAP) Pulse Ox O2 Delivery O2 Flow Rate FiO2 10/08/17 09:22 97.2 88 20 138/91 97 Room Air General Appearance: well appearing, no apparent distress, alert, GCS 15 Head: normocephalic, atraumatic ENT: hearing grossly normal, normal voice Neck: full range of motion, supple Respiratory: no respiratory distress, speaking full sentences Cardiovascular #1: normal inspection, normal peripheral pulses Gastrointestinal: normal inspection, soft Musculoskeletal: normal inspection, back normal, digits/nails normal, gait/ station normal, normal range of motion Neurologic: normal inspection, alert, oriented x3, responsive, culinary arts instructor III-XII nml as tested, normal gait Psychiatric: normal inspection, mood/affect normal Skin: no rash Medical Decision Making Diagnostic Impression: Primary Impression: Back pain ER Course Patient presented for back pain. Differential diagnosis included but was not limited to herniated disc, cauda equina syndrome, abdominal aortic aneurysm, perforated ulcer, spinal epidural abscess, spinal stenosis, lumbar fracture, metastatic lesion, pyelonephritis. Patient has a benign exam and does not appear to require any further imaging or laboratory testing at this time. The patient had exacerbation of chronic back issues. The patient given Toradol for pain. The patient shows no signs of cauda equina or epidural abscess. The patient is advised to follow up with primary care doctor in 1-2 days. Patient is advised to return if any worsening condition or if any changes in status that are concerning. This report is dictated with Tame[employer] instructional assistant software which may occasionally lead to discrepancies related to use of this software. Last Vital Signs Date Time Temp Pulse Resp B/P (MAP) Pulse Ox O2 Delivery O2 Flow Rate FiO2 10/08/17 09:52 97.2 88 20 138/91 97 Room Air Status: improved Disposition: HOME, SELF-CARE Condition: Stable Scripts Methocarbamol* (ROBAXIN-750*) 750 Mg Tablet 750 MG PO TID, #21 TAB 0 Refills Prov: Shahbaz Barreto 10/08/17 Referrals: [facility],REFERRING (PCP) Patient Instructions: Back Pain, Adult Shahbaz Barreto Oct 09, 2017 07:35
== END 2017-10-08 09:55 | disposition home or self-care (01) ==
LOC: EMR 09:48
DX: M54.5 Low back pain (principal); I10 Essential (primary) hypertension; E11.9 Type 2 diabetes mellitus without complications
CPT/HCPCS: 96372; 99283

== ENCOUNTER 2017-12-19 11:35 | Emergency (ER) | payer MEDICAID ==
[~2017-12-19] VITALS: Ht 160 cm; Wt 86.2 kg
[~2017-12-19 11:35] MED LIST changes: +ROBAXIN-750750 MG PO
[2017-12-19 12:00] VITALS: BP 119/71
--- NOTE | 2017-12-19 12:03 | Diagnostic Imaging Report ---
Indication: Left facial numbness Technique: Continuous helical CT scanning of the head was performed without intravenous contrast material. Axial and coronal 5 mm sections were generated. Radiation dose was minimized using automated exposure control Dose: Total Dose Length Product - DLP 1379.[address] Dose Index - CTDIvol(s) 70.38 mGy. Comparison: 08/26/2015 Findings: The ventricular system is normal in size and configuration. There is no shift of midline structures. No abnormal extra-axial fluid collections are noted. There is no evidence of intracerebral bleeding. No other abnormal high or low density areas are noted within the brain. Intact calvarium. Visualized orbits and sinuses are unremarkable. No significant interim change Impression: Normal CT scan of the head without contrast material. The CT scanner at [facility] is accredited by the [employer] and the scans are performed using protocols designed to limit radiation exposure to as low as reasonably achievable to attain images of sufficient resolution adequate for diagnostic evaluation.
[2017-12-19 12:08] VITALS: BP 119/71
[2017-12-19 12:25] LABS: BASOPHILS % (AUTO) 0.8 % (0.0-2.0); EOSINOPHILS % (AUTO) 1.8 % (0.0-3.0); HEMOGLOBIN 13.9 G/DL (12.0-16.0); MEAN CORPUSCULAR VOLUME 87 FL (80-99); MONOCYTES % (AUTO) 6.2 % (1.0-10.0); NEUTROPHILS % (AUTO) 58.3 % (45.0-75.0); PLATELET COUNT 356 K/UL (150-450); RED CELL DISTRIBUTION WIDTH 11.4 % (11.6-14.8); WHITE BLOOD COUNT 7.9 K/UL (4.8-10.8)
[2017-12-19 12:39] LABS: ANION GAP 6 mmol/L (5-15); BLOOD UREA NITROGEN 11 mg/dL (7-18); CALCIUM 8.7 MG/DL (8.5-10.1); CARBON DIOXIDE 30 MMOL/L (21-32); CHLORIDE 101 MMOL/L (98-107); CREATININE 0.7 MG/DL (0.55-1.30); POTASSIUM 3.6 MMOL/L (3.5-5.1); SODIUM 137 MMOL/L (136-145)
[2017-12-19 12:45] LABS: ALANINE AMINOTRANSFERASE 32 U/L (12-78); ALBUMIN 3.6 G/DL (3.4-5.0); ALBUMIN/GLOBULIN RATIO 0.9 (1.0-2.7); ALKALINE PHOSPHATASE 103 U/L (46-116); ASPARTATE AMINO TRANSFERASE 22 U/L (15-37); BILIRUBIN,TOTAL 0.3 MG/DL (0.2-1.0); CHOLESTEROL 172 MG/DL (< 200); HDL CHOLESTEROL 35 MG/DL (40-60); TRIGLYCERIDES 140 MG/DL (30-150)
[2017-12-19 13:33] VITALS: BP 124/69
--- NOTE | 2017-12-19 14:20 | Emergency Room Report ---
History of Present Illness General Chief Complaint: Stroke Symptoms Source: Patient Present Illness HPI 52-year-old female presents ED for evaluation. Patient states she's been experiencing left-sided facial numbness and drooping since this morning. Denies any slurred speech. Denies any arm or leg weakness. Denies any headache. Denies any photophobia. Denies chest pain or shortness of breath. No other aggravating relieving factors. Denies any other associated symptoms Allergies: Coded Allergies: No Known Allergies (Unverified , 10/08/17) Patient History Past Medical History: none, DM, HTN Past Surgical History: none Pertinent Family History: none Social History: Denies: smoking, alcohol use, drug use Now: No Immunizations: UTD Reviewed Nursing Documentation: PMH: Agreed; PSxH: Agreed Nursing Documentation-PMH Hx Hypertension: Yes Hx Diabetes: Yes Hx Cancer: No Hx Gastrointestinal Problems: Yes Hx Cerebrovascular Accident: No Review of Systems All Other Systems: negative except mentioned in HPI Physical Exam Vital Signs Date Time Temp Pulse Resp B/P (MAP) Pulse Ox O2 Delivery O2 Flow Rate FiO2 12/19/17 11:40 97.9 81 20 148/91 96 Room Air 97.9 Sp02 EP Interpretation: reviewed, normal General Appearance: no apparent distress, alert, GCS 15, non-toxic Head: normocephalic, atraumatic Eyes: bilateral eye normal inspection, bilateral eye PERRL ENT: hearing grossly normal, normal pharynx, no angioedema, normal voice Neck: full range of motion, supple/symm/no masses Respiratory: chest non-tender, lungs clear, normal breath sounds, speaking full sentences Cardiovascular #1: regular rate, rhythm, no edema Cardiovascular #2: 2+ carotid (R), 2+ carotid (L), 2+ radial (R), 2+ radial (L) , 2+ dorsalis pedis (R), 2+ dorsalis pedis (L) Gastrointestinal: normal bowel sounds, non tender, soft, non-distended, no guarding, no rebound Rectal: deferred Genitourinary: normal inspection, no CVA tenderness Musculoskeletal: back normal, gait/station normal, normal range of motion, non- tender Neurologic: alert, oriented x3, responsive, bin tripper operator III-XII nml as tested, motor strength/tone normal, sensory intact, speech normal Psychiatric: judgement/insight normal, memory normal, mood/affect normal, no suicidal/homicidal ideation Reflexes: 3+ bicep (R), 3+ bicep (L), 3+ tricep (R), 3+ tricep (L), 3+ knee (R) , 3+ knee (L) Skin: normal color, no rash, warm/dry, well hydrated Lymphatic: no adenopathy Medical Decision Making Diagnostic Impression: Primary Impression: Facial twitching ER Course Hospital Course 52-year-old female presents ED c/o L facial drip, twitching Differential diagnoses include: arrythmia, dehydration, intracranial bleed, seizure Clinical course Patient placed on stretcher. on chemist. After initial history and physical I ordered labs, EKG, IVFs, CT Brain labs reviewed- no leukocytosis, Hb/Hct stable, electrolytes ok, troponins negative CT Brain - unremarkable EKG - NSR, no acute ischemic changes interpreted by me On reevaluation patient has no prolonged evidence of focal neurological deficit. Patient is drooping her face in front of me and then returning back to baseline. vitals stable, blood pressure within normal limits. recommend close followup with PMD I. I feel this is a highly complex case requiring extensive working including EKG/Rhythm strip, Xray/CT/US, Blood/urine lab work, repeat exams while in ED, and administration of strong opiates/narcotics for pain control, admission to hospital or close patient follow up. Diagnosis - facial twitching Stable and discharged to home. Followup with PMD. Return to ED if symptoms recur or worsen Labs Test 12/19/17 12:04 White Blood Count 7.9 K/UL (4.8-10.8) Red Blood Count 4.80 M/UL (4.20-5.40) Hemoglobin 13.9 G/DL (12.0-16.0) Hematocrit 42.0 % (37.0-47.0) Mean Corpuscular Volume 87 FL (80-99) Mean Corpuscular Hemoglobin 29.0 PG (27.0-31.0) Mean Corpuscular Hemoglobin Concent 33.2 G/DL (32.0-36.0) Red Cell Distribution Width 11.4 % (11.6-14.8) Platelet Count 356 K/UL (150-450) Mean Platelet Volume 6.4 FL (6.5-10.1) Neutrophils (%) (Auto) 58.3 % (45.0-75.0) Lymphocytes (%) (Auto) 33.0 % (20.0-45.0) Monocytes (%) (Auto) 6.2 % (1.0-10.0) Eosinophils (%) (Auto) 1.8 % (0.0-3.0) Basophils (%) (Auto) 0.8 % (0.0-2.0) Prothrombin Time 10.0 SEC (9.30-11.50) Prothromb Time International Ratio 1.0 (0.9-1.1) Activated Partial Thromboplast Time 30 SEC (23-33) Sodium Level 137 MMOL/L (136-145) Potassium Level 3.6 MMOL/L (3.5-5.1) Chloride Level 101 MMOL/L (98-107) Carbon Dioxide Level 30 MMOL/L (21-32) Anion Gap 6 mmol/L (5-15) Blood Urea Nitrogen 11 mg/dL (7-18) Creatinine 0.7 MG/DL (0.55-1.30) Estimat Glomerular Filtration Rate > 60 mL/min (>60) Glucose Level 209 MG/DL (74-106) Calcium Level 8.7 MG/DL (8.5-10.1) Total Bilirubin 0.3 MG/DL (0.2-1.0) Aspartate Amino Transf (AST/SGOT) 22 U/L (15-37) Alanine Aminotransferase (ALT/SGPT) 32 U/L (12-78) Alkaline Phosphatase 103 U/L (46-116) Total Protein 7.5 G/DL (6.4-8.2) Albumin 3.6 G/DL (3.4-5.0) Globulin 3.9 g/dL Albumin/Globulin Ratio 0.9 (1.0-2.7) Triglycerides Level 140 MG/DL (30-150) Cholesterol Level 172 MG/DL (< 200) LDL Cholesterol 119 mg/dL (<100) HDL Cholesterol 35 MG/DL (40-60) Cholesterol/HDL Ratio 4.9 (3.3-4.4) EKG Diagnostic Results Rate: normal Rhythm: NSR ST Segments: no acute changes ASA given to the pt in ED: No Rhythm Strip Diag. Results EP Interpretation: yes Rhythm: NSR, no PVC's, no ectopy CT/MRI/US Diagnostic Results CT/MRI/US Diagnostic Results : Imaging Test Ordered: CT HEad Impression no acute process Last Vital Signs Date Time Temp Pulse Resp B/P (MAP) Pulse Ox O2 Delivery O2 Flow Rate FiO2 12/19/17 13:33 98.0 73 16 124/69 98 Room Air Status: improved Disposition: HOME, SELF-CARE Condition: Stable Patient Instructions: Muscle Cramps and Spasms, [id number] Bandar Avelar MD Dec 19, 2017 14:20
--- NOTE | 2017-12-21 17:33 | Cardiology Report ---
APPROVED REPORT EKG Measurement Heart [id number] Normal sinus rhythm Left anterior fascicular block Moderate voltage criteria for LVH, may be normal variant Abnormal ECG
== END 2017-12-19 13:44 | disposition home or self-care (01) ==
LOC: EMR 12:40
DX: R25.3 Fasciculation (principal); I10 Essential (primary) hypertension; E11.9 Type 2 diabetes mellitus without complications
CPT/HCPCS: 36415; 70450; 80053; 80061; 82962; 85025; 85610; 85730; 93005; 99284

== ENCOUNTER 2018-02-01 11:43 | Emergency (ER) | payer MEDICAID ==
[~2018-02-01] VITALS: Ht 157.5 cm; Wt 70.3 kg
[2018-02-01 11:53] VITALS: BP 140/90
[2018-02-01] MEDS ORDERED: CORTISPORIN EAR10 ML LEFT EAR (12:02)
[2018-02-01] MEDS ORDERED: AMOXICILLIN500 MG ORAL (12:02)
[2018-02-01 12:06] VITALS: BP 140/90
--- NOTE | 2018-02-01 12:09 | Emergency Room Report ---
History of Present Illness General Chief Complaint: Earache Source: Patient Present Illness HPI Patient presents with complaints of left ear pain Ongoing for the past 10 days Patient does take exercise classes in the pool And reports that she does get water in them intermittently Has decreased hearing because of the discomfort and eyes any fevers or chills denies any difficulty swallowing denies any sore throat Allergies: Coded Allergies: No Known Allergies (Unverified , 10/08/17) Patient History Past Medical History: see triage record Pertinent Family History: none Reviewed Nursing Documentation: PMH: Agreed; PSxH: Agreed Nursing Documentation-PMH Hx Hypertension: Yes Hx Diabetes: Yes Hx Cancer: No Hx Gastrointestinal Problems: Yes Hx Cerebrovascular Accident: No Review of Systems All Other Systems: negative except mentioned in HPI Physical Exam Vital Signs Date Time Temp Pulse Resp B/P (MAP) Pulse Ox O2 Delivery O2 Flow Rate FiO2 02/01/18 11:51 97.7 82 20 140/90 99 Room Air 97.7 Sp02 EP Interpretation: reviewed, normal General Appearance: well appearing, no apparent distress Head: normocephalic, atraumatic Eyes: bilateral eye PERRL, bilateral eye EOMI ENT: normal pharynx, other - Left tympanic membrane erythematous, canal is also edematous however patent Neck: supple, thyroid normal Respiratory: lungs clear, normal breath sounds Cardiovascular #1: regular rate, rhythm Gastrointestinal: non tender, soft Musculoskeletal: normal inspection Neurologic: alert, oriented x3, responsive, batch room technician III-XII nml as tested Skin: normal color, no rash Lymphatic: no adenopathy Medical Decision Making Diagnostic Impression: Primary Impression: otitis media Additional Impression: otitis externa ER Course Patient has findings consistent with otitis media and externa Given her comorbidities including diabetes she is encouraged highly to follow up with her primary physician for continued care At this time symptomatically treated and stable for close outpatient follow-up Last Vital Signs Date Time Temp Pulse Resp B/P (MAP) Pulse Ox O2 Delivery O2 Flow Rate FiO2 02/01/18 11:53 97.7 82 20 140/90 99 Room Air 97.7 Status: unchanged Disposition: HOME, SELF-CARE Condition: Stable Scripts Amoxicillin* (AMOXIL*) 500 Mg Capsule 500 MG ORAL THREE TIMES A DAY, #21 CAP Prov: Sapna Wolf DO 02/01/18 Neomycin/Polymyxin B Sulf/Hc* (CORTISPORIN EAR SOLUTION*) 10 Ml Solution 4 DROP LEFT EAR QID, #10 ML 0 Refills Prov: Sapna Wolf DO 02/01/18 Referrals: [facility],REFERRING (PCP) Patient Instructions: Otitis Externa, [id number], Otitis Media, Adult Additional Instructions: Patient is provided with the discharge instructions notified to follow up with primary doctor in the next 2-3 days otherwise return to the er with any worsening symptoms. Please note that this report is being documented using Packetzoom technology. This can lead to erroneous entry secondary to incorrect interpretation by the dictating instrument. Sapna Wolf DO February 01, 2018 12:09
== END 2018-02-01 12:06 | disposition home or self-care (01) ==
LOC: EMR 11:58
DX: H66.92 Otitis media, unspecified, left ear (principal); H60.92 Unspecified otitis externa, left ear; I10 Essential (primary) hypertension; E11.9 Type 2 diabetes mellitus without complications
CPT/HCPCS: 99284

== ENCOUNTER 2018-02-23 11:16 | Emergency (ER) | payer MEDICAID ==
[~2018-02-23] VITALS: Ht 154.9 cm; Wt 74.8 kg
[2018-02-23 11:45] VITALS: BP 134/86
[2018-02-23 12:45] LABS: BASOPHILS % (AUTO) 0.5 % (0.0-2.0); EOSINOPHILS % (AUTO) 1.4 % (0.0-3.0); HEMATOCRIT 42.6 % (37.0-47.0); HEMOGLOBIN 14.2 G/DL (12.0-16.0); LYMPHOCYTES % (AUTO) 33.4 % (20.0-45.0); MEAN CORPUSCULAR VOLUME 88 FL (80-99); MONOCYTES % (AUTO) 5.1 % (1.0-10.0); NEUTROPHILS % (AUTO) 59.6 % (45.0-75.0); PLATELET COUNT 376 K/UL (150-450); RED BLOOD COUNT 4.81 M/UL (4.20-5.40); RED CELL DISTRIBUTION WIDTH 11.2 % (11.6-14.8); WHITE BLOOD COUNT 9.2 K/UL (4.8-10.8)
[2018-02-23 12:50] LABS: APPEARANCE,URINE CLEAR; BILIRUBIN, URINE NEGATIVE (NEGATIVE); COLOR,URINE YELLOW; GLUCOSE, URINE (UA) NEGATIVE (NEGATIVE); KETONES,URINE NEGATIVE (NEGATIVE); LEUKOCYTE ESTERASE ,URINE 1+ (NEGATIVE); NITRITE,URINE NEGATIVE (NEGATIVE); PH,URINE 6.5 (4.5-8.0); PROTEIN,URINE 1+ (NEGATIVE); UROBILINOGEN,URINE NORMAL MG/DL (0.0-1.0)
[2018-02-23 12:53] LABS: ANION GAP 8 mmol/L (5-15); BLOOD UREA NITROGEN 9 mg/dL (7-18); CALCIUM 8.7 MG/DL (8.5-10.1); CARBON DIOXIDE 28 MMOL/L (21-32); CHLORIDE 102 MMOL/L (98-107); CREATININE 0.7 MG/DL (0.55-1.30); POTASSIUM 3.5 MMOL/L (3.5-5.1); SODIUM 138 MMOL/L (136-145)
[2018-02-23 13:08] LABS: ALANINE AMINOTRANSFERASE 31 U/L (12-78); ALBUMIN 3.5 G/DL (3.4-5.0); ALBUMIN/GLOBULIN RATIO 0.9 (1.0-2.7); ALKALINE PHOSPHATASE 103 U/L (46-116); ASPARTATE AMINO TRANSFERASE 19 U/L (15-37); BILIRUBIN,TOTAL 0.3 MG/DL (0.2-1.0); CKMB < 0.5 NG/ML (0.0-3.6); CREATINE KINASE 38 U/L (26-308)
--- NOTE | 2018-02-23 14:21 | Emergency Room Report ---
History of Present Illness General Chief Complaint: General Complaint Source: Patient, Medical Record Present Illness HPI This patient has several different complaints. She states that she noticed an area of soft tissue in her left armpit that appears larger than the right side. She denies injury, redness or warmth. She states that she has also had LBP for several months. She denies weakness, tingling/numbness. She denies dysuria or hematuria. She denies chest pain or shortness of breath. She states she's also been more fatigued than usual lately. She denies cough or congestion. She denies bodyaches. She has no other complaints. Allergies: Coded Allergies: IBUPROFEN (Verified Allergy, Unknown, 02/23/18) Patient History Past Medical History: none, see triage record, DM, HTN, other - Hypothyroid Social History: Denies: smoking, alcohol use, drug use Reviewed Nursing Documentation: PMH: Agreed; PSxH: Agreed Nursing Documentation-PMH Past Medical History: No History, Except For Hx Hypertension: Yes Hx Diabetes: Yes Hx Cancer: No Hx Gastrointestinal Problems: Yes Hx Cerebrovascular Accident: No Review of Systems All Other Systems: negative except mentioned in HPI Physical Exam Vital Signs Date Time Temp Pulse Resp B/P (MAP) Pulse Ox O2 Delivery O2 Flow Rate FiO2 02/23/18 11:35 98.1 88 18 134/86 99 Room Air 98.1 Sp02 EP Interpretation: reviewed, normal General Appearance: no apparent distress, alert, GCS 15, non-toxic Head: normocephalic, atraumatic Eyes: bilateral eye normal inspection, bilateral eye PERRL ENT: hearing grossly normal, normal pharynx, no angioedema, normal voice Neck: full range of motion, supple/symm/no masses Respiratory: chest non-tender, lungs clear, normal breath sounds, no respiratory distress, no retraction, no accessory muscle use, speaking full sentences Cardiovascular #1: regular rate, rhythm, no edema Gastrointestinal: normal bowel sounds, non tender, soft, non-distended, no guarding, no rebound Rectal: deferred Musculoskeletal: back normal, gait/station normal, normal range of motion, non- tender Neurologic: alert, oriented x3, responsive, motor strength/tone normal, sensory intact, speech normal Psychiatric: judgement/insight normal, memory normal, mood/affect normal, no suicidal/homicidal ideation Skin: normal color, no rash, warm/dry, well hydrated Medical Decision Making Diagnostic Impression: Primary Impression: Low back pain Additional Impression: Fatigue ER Course This patient has a clinical presentation consistent with chemical low back pain. There are no red flags on physical exam or history that would make me concerned for underlying fracture. Therefore, I do not feel that I need to obtain imaging studies. There is no evidence of compartment syndrome. There is no neurologic deficit. Laboratory workup to include CBC, CMP, urinalysis and cardiac enzymes are unremarkable. The patient was concerned about an area under her left armpit that was more prominent in her right. I did not appreciate this. I did not identify any abnormality on examination. I am unsure of the etiology of the patient's fatigued. I did not identify an emergency etiology. The patient was instructed to follow-up with her primary care physician for further workup. The patient was instructed on supportive home measures. No emergency medical condition was identified. The patient was given return precautions and followup instructions. Laboratory Tests Test 02/23/18 12:32 White Blood Count 9.2 K/UL (4.8-10.8) Red Blood Count 4.81 M/UL (4.20-5.40) Hemoglobin 14.2 G/DL (12.0-16.0) Hematocrit 42.6 % (37.0-47.0) Mean Corpuscular Volume 88 FL (80-99) Mean Corpuscular Hemoglobin 29.4 PG (27.0-31.0) Mean Corpuscular Hemoglobin Concent 33.2 G/DL (32.0-36.0) Red Cell Distribution Width 11.2 % (11.6-14.8) L Platelet Count 376 K/UL (150-450) Mean Platelet Volume 6.2 FL (6.5-10.1) L Neutrophils (%) (Auto) 59.6 % (45.0-75.0) Lymphocytes (%) (Auto) 33.4 % (20.0-45.0) Monocytes (%) (Auto) 5.1 % (1.0-10.0) Eosinophils (%) (Auto) 1.4 % (0.0-3.0) Basophils (%) (Auto) 0.5 % (0.0-2.0) Urine Color Yellow Urine Appearance Clear Urine pH 6.5 (4.5-8.0) Urine Specific [place] 1.015 (1.005-1.035) Urine Protein 1+ (NEGATIVE) H Urine Glucose (UA) Negative (NEGATIVE) Urine Ketones Negative (NEGATIVE) Urine Occult Blood Negative (NEGATIVE) Urine Nitrite Negative (NEGATIVE) Urine Bilirubin Negative (NEGATIVE) Urine Urobilinogen Normal MG/DL (0.0-1.0) Urine Leukocyte Esterase 1+ (NEGATIVE) H Urine RBC 0-2 /HPF (0 - 2) Urine WBC 2-4 /HPF (0 - 2) Urine Squamous Epithelial Cells Occasional /LPF Urine Bacteria Occasional /HPF (NONE) Urine Mucus Few /LPF (NONE/OCC) H Sodium Level 138 MMOL/L (136-145) Potassium Level 3.5 MMOL/L (3.5-5.1) Chloride Level 102 MMOL/L (98-107) Carbon Dioxide Level 28 MMOL/L (21-32) Anion Gap 8 mmol/L (5-15) Blood Urea Nitrogen 9 mg/dL (7-18) Creatinine 0.7 MG/DL (0.55-1.30) Estimate Glomerular Filtration Rate > 60 mL/min (>60) Glucose Level 246 MG/DL (74-106) H Calcium Level 8.7 MG/DL (8.5-10.1) Total Bilirubin 0.3 MG/DL (0.2-1.0) Aspartate Amino Transferase (AST) 19 U/L (15-37) Alanine Aminotransferase (ALT) 31 U/L (12-78) Alkaline Phosphatase 103 U/L (46-116) Total Creatine Kinase 38 U/L (26-308) Creatine Kinase MB < 0.5 NG/ML (0.0-3.6) Creatine Kinase MB Relative Index Troponin I 0.000 ng/mL (0.000-0.056) Total Protein 7.5 G/DL (6.4-8.2) Albumin 3.5 G/DL (3.4-5.0) Globulin 4.0 g/dL Albumin/Globulin Ratio 0.9 (1.0-2.7) L EKG Diagnostic Results Rate: normal Rhythm: NSR ST Segments: other - NSST Rhythm Strip Diag. Results EP Interpretation: yes Rate: 60's Rhythm: NSR, no PVC's, no ectopy Last Vital Signs Date Time Temp Pulse Resp B/P (MAP) Pulse Ox O2 Delivery O2 Flow Rate FiO2 02/23/18 11:45 98.1 84 18 134/86 99 Room Air 98.1 Status: improved Disposition: HOME, SELF-CARE Condition: Improved Referrals: Kapil Campo MD (PCP) Gely Henderson DO Feb 23, 2018 14:21
[2018-02-23 14:30] VITALS: BP 129/81
[2018-02-23 14:50] VITALS: BP 129/81
--- NOTE | 2018-02-24 14:05 | Cardiology Report ---
APPROVED REPORT EKG Measurement Heart [id number] Normal sinus rhythm Left anterior fascicular block Moderate voltage criteria for LVH, may be normal variant Abnormal ECG
== END 2018-02-23 14:50 | disposition home or self-care (01) ==
LOC: EMR 12:24
DX: M54.5 Low back pain (principal); R53.83 Other fatigue; E11.9 Type 2 diabetes mellitus without complications; I10 Essential (primary) hypertension; E03.9 Hypothyroidism, unspecified
CPT/HCPCS: 36415; 80053; 81003; 82550; 82553; 84484; 85025; 93005; 99283

== ENCOUNTER 2018-09-06 11:04 | Emergency (ER) | payer MEDICARE, MEDICAID ==
[~2018-09-06] VITALS: Ht 157.5 cm; Wt 72.6 kg
[2018-09-06 11:07] VITALS: BP 148/85
[2018-09-06] MEDS ORDERED: FIORICET1 EA ORAL (11:54)
[2018-09-06] MEDS ORDERED: Pseudoephedrine 30mg tab ORAL ONE (12:00)
[2018-09-06 12:05] VITALS: BP 140/82
--- NOTE | 2018-09-06 12:25 | Emergency Room Report ---
History of Present Illness General Chief Complaint: Headache Source: Patient Present Illness HPI Patient presents with complaints of headache reports frontal area Also having some increased pressure in the frontal sinuses Denies any neck pain or photophobia patient has a mild cough Denies any fevers denies any neck pain Denies any focal weakness Patient reports recent hospitalization with cardiac workup However denies any other complaints regarding that Denies any recent travel Allergies: Coded Allergies: IBUPROFEN (Verified Allergy, Unknown, 02/23/18) Patient History Past Medical History: see triage record Pertinent Family History: none Last Menstrual Period: n/a Reviewed Nursing Documentation: PMH: Agreed; PSxH: Agreed Nursing Documentation-PMH Hx Hypertension: Yes Hx Diabetes: Yes Hx Cancer: No Hx Gastrointestinal Problems: Yes Hx Cerebrovascular Accident: No Review of Systems All Other Systems: negative except mentioned in HPI Physical Exam Vital Signs Date Time Temp Pulse Resp B/P (MAP) Pulse Ox O2 Delivery O2 Flow Rate FiO2 09/06/18 11:07 98.2 90 18 148/85 98 Room Air Sp02 EP Interpretation: reviewed, normal General Appearance: well appearing, no apparent distress Head: normocephalic, atraumatic Eyes: bilateral eye PERRL, bilateral eye EOMI ENT: hearing grossly normal, normal pharynx, TMs + canals normal, uvula midline Neck: full range of motion, supple, no meningismus, no bony tend Respiratory: lungs clear, normal breath sounds, no rhonchi, no respiratory distress, no retraction, no accessory muscle use Cardiovascular #1: normal peripheral pulses, regular rate, rhythm, no edema, no gallop, no JVD, no murmur Gastrointestinal: normal bowel sounds, non tender, soft, no mass, no organomegaly, non-distended, no guarding, no hernia, no pulsatile mass, no rebound Genitourinary: no CVA tenderness Musculoskeletal: normal inspection Neurologic: oriented x3, responsive, customer experience associate III-XII nml as tested, motor strength/ tone normal, sensory intact Psychiatric: mood/affect normal Skin: normal color, no rash, warm/dry, palpation normal Lymphatic: normal inspection, no adenopathy Medical Decision Making Diagnostic Impression: Primary Impression: Headache Additional Impression: sinus headache ER Course Given the patient's history exam and presentation multiple differentials considered Including but not limited to neurological, neurosurgical infectious Patient has a fairly benign medical evaluation neurologically intact I did not feel patient met criteria for acute imaging given the description appears to have some consistency with sinus pathology patient is placed on medications and will have close outpatient follow-up , Last Vital Signs Date Time Temp Pulse Resp B/P (MAP) Pulse Ox O2 Delivery O2 Flow Rate FiO2 09/06/18 12:05 98.2 85 18 140/82 98 Room Air Status: improved Disposition: HOME, SELF-CARE Condition: Improved Scripts Acetamin/Butalbital/Caffeine* (FIORICET*) 1 Ea Tab 1 TAB ORAL Q8HR, #15 TAB 0 Refills Prov: Sapna Wolf DO 09/06/18 Referrals: Kapil Campo MD (PCP) Patient Instructions: General Headache Without Cause, Sinus Headache, Easy-to- Read Additional Instructions: Patient is provided with the discharge instructions notified to follow up with primary doctor in the next 2-3 days otherwise return to the er with any worsening symptoms. Please note that this report is being documented using DRAGON technology. This can lead to erroneous entry secondary to incorrect interpretation by the dictating instrument. Sapna Wolf DO Sep 06, 2018 12:25
== END 2018-09-06 12:05 | disposition home or self-care (01) ==
LOC: EMR 11:48
DX: R51 Headache (principal); Z88.6 Allergy status to analgesic agent
CPT/HCPCS: 99282

== ENCOUNTER 2018-10-29 17:07 | Emergency (ER) | payer MEDICARE, MEDICAID ==
[~2018-10-29] VITALS: Ht 160 cm; Wt 68.0 kg
--- NOTE | 2018-10-29 17:53 | NUR ---
ED Nurse Note: Pt came in from home due to R big toe nail ingrown toenail redness and swelling x 2 days. Pain 8/10 arturo. AOx4, VSS at this time. Will cont to monitor.
[2018-10-29 18:41] VITALS: BP 129/87
[2018-10-29] MEDS ORDERED: Bacitracin Oint UD TOPIC ONE (18:45)
--- NOTE | 2018-10-29 19:08 | Emergency Room Report ---
History of Present Illness General Chief Complaint: Skin Rash/Abscess Source: Patient, Medical Record Present Illness HPI 53-year-old female presents to the emergency department complaining of progressive 10 out of 10 in severity localized pain, erythema and tenderness to the right great toe over the course of 2-3 days. Patient reports that she believes she may have an ingrown toenail. Patient states some discoloration of the skin along the affected side of the nail. Patient also reports that she is diabetic. She states that she is up-to-date with her tetanus vaccination she also states that she has not tried any [id number] medications to relieve her symptoms. She denies trauma or fall. Allergies: Coded Allergies: IBUPROFEN (Verified Allergy, Unknown, 02/23/18) Patient History Past Medical History: see triage record, DM Past Surgical History: none Pertinent Family History: none Reviewed Nursing Documentation: PMH: Agreed; PSxH: Agreed Nursing Documentation-PM Past Medical History: No History, Except For Hx Hypertension: Yes Hx Diabetes: Yes Hx Cancer: No Hx Gastrointestinal Problems: Yes Hx Cerebrovascular Accident: No Review of Systems All Other Systems: negative except mentioned in HPI Physical Exam Vital Signs Date Time Temp Pulse Resp B/P (MAP) Pulse Ox O2 Delivery O2 Flow Rate FiO2 10/29/18 17:31 98.4 92 16 135/91 96 Room Air Medical Decision Making PA Attestation Dr. Rose is my supervising Physician whom patient management has been discussed with. Diagnostic Impression: Primary Impression: Paronychia ER Course 50-year-old female presents to the emergency department complaining of 7 out of 10 in severity pain in the left shoulder that she localizes to be anteriorly and on the top of her shoulder with radiation down the left arm. Patient reports pain is exacerbated upon attempts to raise her arm. Patient reports some weakness in the affected extremity. Patient reports history of previous shoulder soft tissue injury years ago from an accident she states she did not ever have any surgery. Patient denies new trauma or fall she states that this pain is different in character to what she has experienced in the past. Patient states that has been going for 3 days which has begun to concern her as normally her shoulder pain will come and go and is usually affected by cold weather. Denies CP, Palpitations, LOC, AMS, dizziness, Changes in Vision, Sensation, paresthesias, or a sudden severe headache. Denies pmhx other than HTN. Ddx considered but are not limited to cellulitis, paronychia, eponychia, ingrown toe nail, fracture, d/L, gout Vital signs: are WNL, pt. is afebrile H&PE are most consistent with left middle finger paronychia ORDERS: none required at this time, the diagnosis is clinical ED INTERVENTIONS: - verbal consent was received . - lesion was cleaned with Betadine prep. -Incision primarily by lifting the cuticle line using a sterile No.10 blade scalpel to drain the paronychia. - Moderate release of purulent d/c. Pt. tolerated well without complication. - Bacitracin and sterile band-aid was then applied afterward. - will d/c pt. with PO abx. D/w pt. importance of F/U with a car starter, Nail does not appear ingrown however evidence of fungal infection of the nail is noted. DISCHARGE: At this time pt. is stable for d/c to home. Will provide printed patient care instructions, and any necessary prescriptions. Care plan and follow up instructions have been discussed with the patient prior to discharge. Last Vital Signs Date Time Temp Pulse Resp B/P (MAP) Pulse Ox O2 Delivery O2 Flow Rate FiO2 10/29/18 18:41 98.4 74 16 129/87 98 Room Air Disposition: HOME, SELF-CARE Condition: Stable Scripts Mupirocin* (MUPIROCIN*) 22 Gm Oint...g. 1 APPLIC TOPIC THREE TIMES A DAY, #22 GM Prov: Odalys Zuniga 10/29/18 Clindamycin Hcl (CLINDAMYCIN HCL) 300 Mg Capsule 300 MG ORAL FOUR TIMES A DAY for 7 Days, #28 CAP Prov: Odalys Zuniga 10/29/18 Referrals: Kapil Campo MD (PCP) Patient Instructions: Paronychia, [id number] Additional Instructions: Take medications as directed. Follow up with a Primary Care Provider in 3-5 days, even if your symptoms have resolved. --Please review list of primary care clinics, if you do not already have a primary care provider Return sooner to ED if new symptoms occur, or current symptoms become worse. - Please note that this Emergency Department Report was dictated using [employer] vat tender technology software, occasionally this can lead to erroneous entry secondary to interpretation by the dictation equipment. Odalys Zuniga Oct 29, 2018 19:08
[2018-10-29] MEDS ORDERED: CLINDAMYCIN HC300 MG ORAL (19:09)
[2018-10-29] MEDS ORDERED: MUPIROCIN22 GM TOPIC (19:09)
[2018-10-29 19:25] VITALS: BP 132/84
--- NOTE | 2018-10-29 19:25 | NUR ---
ER Nurse Note: Pt seen, treated, medically cleared for discharge by ER PA. Discharge instructions and prescriptions given with repeat verbalziation by pt. Instructed pt to follow up with primary care physcian within one week. Pt a&ox4, VSS, no signs of distress. ID band removed. Pt left with all belongings, stable gait, via own transportation.
== END 2018-10-29 19:25 | disposition home or self-care (01) ==
LOC: EMR 18:00
DX: L03.031 Cellulitis of right toe (principal); E11.9 Type 2 diabetes mellitus without complications; I10 Essential (primary) hypertension
CPT/HCPCS: 99283

== ENCOUNTER 2018-11-21 10:45 | Emergency (ER) | payer MEDICARE, MEDICAID ==
[~2018-11-21] VITALS: Ht 154.9 cm; Wt 72.6 kg
[~2018-11-21 10:45] MED LIST changes: +MUPIROCIN22 GM TOPIC
--- NOTE | 2018-11-21 11:07 | Emergency Room Report ---
History of Present Illness General Chief Complaint: Edema Source: Patient, Medical Record Present Illness HPI Patient 53-year-old female presented after increased bilateral armpit swelling. Patient reports this onset several days. She reports of increased difficulty with moving her upper extremities. Patient had prior history of arthritis. She reports having patient reports having recent mammogram. Patient reports having increased bilateral shoulder discomfort. Is worse with movement and abduction. She denies any fever. Allergies: Coded Allergies: IBUPROFEN (Verified Allergy, Unknown, 02/23/18) Patient History Last Menstrual Period: 2013 Now: No : 3 Para: 3 Reviewed Nursing Documentation: PMH: Agreed; PSxH: Agreed Nursing Documentation-PMH Hx Cardiac Problems: No - hypothyroidism Hx Hypertension: Yes Hx Diabetes: Yes Hx Cancer: No Hx Gastrointestinal Problems: Yes Hx Cerebrovascular Accident: No Review of Systems All Other Systems: negative except mentioned in HPI Physical Exam Vital Signs Date Time Temp Pulse Resp B/P (MAP) Pulse Ox O2 Delivery O2 Flow Rate FiO2 11/21/18 10:53 97.9 74 17 125/75 96 Room Air Sp02 EP Interpretation: reviewed, normal General Appearance: normal inspection, well appearing, no apparent distress, alert, GCS 15 Head: atraumatic ENT: normal ENT inspection, hearing grossly normal, normal voice Neck: normal inspection, full range of motion, supple, no bony tend Respiratory: normal inspection, lungs clear, normal breath sounds, no respiratory distress, no retraction, no wheezing Cardiovascular #1: regular rate, rhythm, no edema Gastrointestinal: normal inspection, normal bowel sounds, non tender, soft, no guarding, no hernia Genitourinary: no CVA tenderness Musculoskeletal: normal inspection, back normal, normal range of motion Neurologic: normal inspection, alert, oriented x3, responsive, speech normal Psychiatric: normal inspection, judgement/insight normal, mood/affect normal Skin: normal inspection, normal color, no rash Medical Decision Making Diagnostic Impression: Primary Impression: Shoulder pain, bilateral Additional Impression: Arthritis Last Vital Signs Date Time Temp Pulse Resp B/P (MAP) Pulse Ox O2 Delivery O2 Flow Rate FiO2 11/21/18 10:53 97.9 74 17 125/75 96 Room Air Shahbaz Barreto MD Nov 21, 2018 11:07
[2018-11-21 11:10] VITALS: BP 121/68
--- NOTE | 2018-11-21 11:10 | NUR ---
ED Nurse Note: patient ambulated to ER with steady gait, complaining of left shoulder pain with radiation to the left under arm. per patient it started 2 month ago and now it getting worse. per patient she can feel mass under her left arm when she is palpating it. AAO x 4, VSS at this time. Skin is dry, intact, warm to touch. patient was connected to the monitor, will continue to monitor.
[2018-11-21] MEDS ORDERED: Acetaminophen 500mg (ES) tab ORAL ONE (11:15)
[2018-11-21 12:22] VITALS: BP 121/68
[2018-11-21] MEDS ORDERED: NORCO 5-325 TA1 EACH ORAL (12:41)
[2018-11-21 12:45] VITALS: BP 138/76
--- NOTE | 2018-11-21 12:45 | NUR ---
ED Nurse Note: Pt cleared by health care Provider for discharge. DC instructions/prescription was given and explained to pt and verbalized understanding of teachings. All medical deviecs such as ID band removed. Pt is AAO x4, ambulatory and left with all personal belongings.
== END 2018-11-21 13:25 | disposition home or self-care (01) ==
LOC: EMR 11:18
DX: I10 Essential (primary) hypertension (principal); E11.9 Type 2 diabetes mellitus without complications; M25.512 Pain in left shoulder; M25.511 Pain in right shoulder; M19.90 Unspecified osteoarthritis, unspecified site
CPT/HCPCS: 99282

== ENCOUNTER 2019-02-20 11:41 | Emergency (ER) | payer MEDICARE, MEDICAID ==
[~2019-02-20] VITALS: Ht 157.5 cm; Wt 72.6 kg
[2019-02-20 11:56] VITALS: BP 139/86
--- NOTE | 2019-02-20 11:56 | NUR ---
ED Nurse Note: PT FROM HOME CAME IN DUE TO LEFT SIDE ABD PAIN X 3 DAYS BUT TODAY IS THE WORSE PAIN. DENIES VOMITING AND DIARRHEA. PT IS AAO X4, AMBULATES WITH STEADY GAIT. VSS.
--- NOTE | 2019-02-20 12:00 | Emergency Room Report ---
History of Present Illness General Chief Complaint: Abdominal Pain Source: Patient, Medical Record Present Illness HPI Patient presents with complaints of left upper flank and mid abdominal pain ongoing for the past 2 days Patient reports that she feels swollen in that area She also has some radiation towards the lower abdomen denies any dysuria Denies any vomiting or diarrhea denies any chest pain or shortness of breath pain is described as being sharp 5 out of 10 Allergies: Coded Allergies: IBUPROFEN (Verified Allergy, Unknown, 02/23/18) Patient History Past Medical History: see triage record Pertinent Family History: none Last Menstrual Period: menopuase Reviewed Nursing Documentation: PMH: Agreed; PSxH: Agreed Nursing Documentation-PMH Past Medical History: No History, Except For Hx Cardiac Problems: No - hypothyroidism Hx Hypertension: Yes Hx Diabetes: Yes Hx Cancer: No Hx Gastrointestinal Problems: Yes Hx Cerebrovascular Accident: No Review of Systems All Other Systems: negative except mentioned in HPI Physical Exam Vital Signs Date Time Temp Pulse Resp B/P (MAP) Pulse Ox O2 Delivery O2 Flow Rate FiO2 02/20/19 11:46 98.2 90 16 138/78 (98) 95 Room Air Sp02 EP Interpretation: reviewed, normal General Appearance: well appearing, no apparent distress Head: normocephalic, atraumatic Eyes: bilateral eye PERRL, bilateral eye EOMI ENT: hearing grossly normal, normal pharynx, TMs + canals normal, uvula midline Neck: full range of motion, supple, no meningismus, no bony tend Respiratory: lungs clear, normal breath sounds, no rhonchi, no respiratory distress, no retraction, no accessory muscle use Cardiovascular #1: normal peripheral pulses, regular rate, rhythm, no edema, no gallop, no JVD, no murmur Gastrointestinal: normal bowel sounds, non tender - Subjectively pointing to the left flank left mid abdominal area,, soft, no mass, no organomegaly, non- distended, no guarding, no hernia, no pulsatile mass, no rebound Genitourinary: no CVA tenderness Musculoskeletal: normal inspection Neurologic: oriented x3, responsive, cassandra architect III-XII nml as tested, motor strength/ tone normal, sensory intact Psychiatric: mood/affect normal Skin: normal color, no rash, warm/dry, palpation normal Lymphatic: normal inspection, no adenopathy Medical Decision Making Diagnostic Impression: Primary Impression: Abdominal pain ER Course With the patient's history and examination, multiple differentials considered, including but not limited to , ectopic , ovarian torsion, gastritis, cholecystitis, pancreatitis, appendicitis Patient's blood work is at baseline levels glucose level is mildly elevated patient reports that she does not check her Glucose regularly She is encouraged to obtain a log and discussed this with her primary physician for improved control of her diabetes Labs Test 02/20/19 12:06 White Blood Count 8.0 K/UL (4.8-10.8) Red Blood Count 4.75 M/UL (4.20-5.40) Hemoglobin 14.2 G/DL (12.0-16.0) Hematocrit 41.5 % (37.0-47.0) Mean Corpuscular Volume 87 FL (80-99) Mean Corpuscular Hemoglobin 29.9 PG (27.0-31.0) Mean Corpuscular Hemoglobin Concent 34.3 G/DL (32.0-36.0) Red Cell Distribution Width 11.4 % (11.6-14.8) Platelet Count 361 K/UL (150-450) Mean Platelet Volume 5.9 FL (6.5-10.1) Neutrophils (%) (Auto) 51.6 % (45.0-75.0) Lymphocytes (%) (Auto) 39.4 % (20.0-45.0) Monocytes (%) (Auto) 6.5 % (1.0-10.0) Eosinophils (%) (Auto) 1.9 % (0.0-3.0) Basophils (%) (Auto) 0.7 % (0.0-2.0) Urine Color Pale yellow Urine Appearance Clear Urine pH 7 (4.5-8.0) Urine Specific [place] 1.010 (1.005-1.035) Urine Protein Negative (NEGATIVE) Urine Glucose (UA) Negative (NEGATIVE) Urine Ketones Negative (NEGATIVE) Urine Blood Negative (NEGATIVE) Urine Nitrite Negative (NEGATIVE) Urine Bilirubin Negative (NEGATIVE) Urine Urobilinogen Normal MG/DL (0.0-1.0) Urine Leukocyte Esterase Negative (NEGATIVE) Sodium Level 140 MMOL/L (136-145) Potassium Level 3.5 MMOL/L (3.5-5.1) Chloride Level 102 MMOL/L (98-107) Carbon Dioxide Level 28 MMOL/L (21-32) Anion Gap 10 mmol/L (5-15) Blood Urea Nitrogen 9 mg/dL (7-18) Creatinine 0.7 MG/DL (0.55-1.30) Estimat Glomerular Filtration Rate > 60 mL/min (>60) Glucose Level 271 MG/DL (74-106) Calcium Level 9.0 MG/DL (8.5-10.1) Total Bilirubin 0.5 MG/DL (0.2-1.0) Aspartate Amino Transf (AST/SGOT) 17 U/L (15-37) Alanine Aminotransferase (ALT/SGPT) 27 U/L (12-78) Alkaline Phosphatase 114 U/L (46-116) Total Protein 7.6 G/DL (6.4-8.2) Albumin 3.7 G/DL (3.4-5.0) Globulin 3.9 g/dL Albumin/Globulin Ratio 0.9 (1.0-2.7) Lipase 113 U/L (73-393) Rhythm Strip Diag. Results EP Interpretation: yes Rate: 60 Rhythm: NSR, no PVC's, no ectopy CT/MRI/US Diagnostic Results CT/MRI/US Diagnostic Results : Impression The abdomen pelvisIMPRESSION: No acute abnormalityin the abdomen or pelvis Last Vital Signs Date Time Temp Pulse Resp B/P (MAP) Pulse Ox O2 Delivery O2 Flow Rate FiO2 02/20/19 11:46 98.2 90 16 138/78 (98) 95 Room Air Status: improved Disposition: HOME, SELF-CARE Condition: Improved Scripts Famotidine (PEPCID AC) 10 Mg Tablet 10 MG PO DAILY, #12 TAB Prov: Sapna Wolf DO 02/20/19 Additional Instructions: Patient is provided with the discharge instructions notified to follow up with primary doctor in the next 2-3 days otherwise return to the er with any worsening symptoms. Please note that this report is being documented using DRAGON technology. This can lead to erroneous entry secondary to incorrect interpretation by the dictating instrument. Sapna Wolf DO Feb 20, 2019 12:00
--- NOTE | 2019-02-20 12:11 | NUR ---
ED Nurse Note: BLOOD/URINE COLLECTED THEN SENT.
--- NOTE | 2019-02-20 12:31 | NUR ---
ED Nurse Note: PT OFF TO CT.
[2019-02-20 12:41] LABS: ANION GAP 10 mmol/L (5-15); BLOOD UREA NITROGEN 9 mg/dL (7-18); CARBON DIOXIDE 28 MMOL/L (21-32); CHLORIDE 102 MMOL/L (98-107); CREATININE 0.7 MG/DL (0.55-1.30); POTASSIUM 3.5 MMOL/L (3.5-5.1); SODIUM 140 MMOL/L (136-145)
[2019-02-20 12:42] LABS: APPEARANCE,URINE CLEAR; BILIRUBIN, URINE NEGATIVE (NEGATIVE); COLOR,URINE PALE YELLOW; GLUCOSE, URINE (UA) NEGATIVE (NEGATIVE); KETONES,URINE NEGATIVE (NEGATIVE); LEUKOCYTE ESTERASE ,URINE NEGATIVE (NEGATIVE); NITRITE,URINE NEGATIVE (NEGATIVE); PH,URINE 7 (4.5-8.0); PROTEIN,URINE NEGATIVE (NEGATIVE); UROBILINOGEN,URINE NORMAL MG/DL (0.0-1.0)
[2019-02-20 12:44] LABS: BASOPHILS % (AUTO) 0.7 % (0.0-2.0); EOSINOPHILS % (AUTO) 1.9 % (0.0-3.0); HEMATOCRIT 41.5 % (37.0-47.0); HEMOGLOBIN 14.2 G/DL (12.0-16.0); LYMPHOCYTES % (AUTO) 39.4 % (20.0-45.0); MEAN CORPUSCULAR VOLUME 87 FL (80-99); MONOCYTES % (AUTO) 6.5 % (1.0-10.0); NEUTROPHILS % (AUTO) 51.6 % (45.0-75.0); PLATELET COUNT 361 K/UL (150-450); RED BLOOD COUNT 4.75 M/UL (4.20-5.40); RED CELL DISTRIBUTION WIDTH 11.4 % (11.6-14.8)
[2019-02-20 12:45] LABS: ALANINE AMINOTRANSFERASE 27 U/L (12-78); ALBUMIN 3.7 G/DL (3.4-5.0); ALBUMIN/GLOBULIN RATIO 0.9 (1.0-2.7); ALKALINE PHOSPHATASE 114 U/L (46-116); ASPARTATE AMINO TRANSFERASE 17 U/L (15-37); BILIRUBIN,TOTAL 0.5 MG/DL (0.2-1.0)
[2019-02-20] MEDS ORDERED: PEPCID AC10 MG PO (13:25)
--- NOTE | 2019-02-20 13:38 | Diagnostic Imaging Report ---
EXAM: CT Abdomen and Pelvis Without Intravenous Contrast CLINICAL HISTORY: PAIN TECHNIQUE: Axial computed tomography images of the abdomen and pelvis without intravenous contrast. CTDI is 17.25 mGy and DLP is 899.82 mGy-cm. One or more of the following dose reduction techniques were used: automated exposure control, adjustment of the mA and/or kV according to patient size, use of iterative reconstruction technique. COMPARISON: CT abdomen/pelvis on 02/14/2017 FINDINGS: Evaluation of solid organs somewhat limited without IV contrast. Liver: Hepatic steatosis. Probable focal fatty sparing along the gallbladder fossa. Hepatomegaly. Spleen: No focal lesion. Gallbladder: Contracted gallbladder. No stones or biliary dilatation. Pancreas: No acute inflammation. No mass. Adrenal glands: 1.5 cm left adrenal adenoma. Kidneys: Normal. No hydronephrosis or stone. No mass. Bowel: Diverticulosis without evidence of diverticulitis. Normal appendix. No bowel obstruction or inflammation. Urinary bladder: Underdistention of the bladder. Reproductive organs: Prior hysterectomy. Muscles: No mass. Subcutaneous tissues: Injection changes in the gluteal soft tissues. Fat-containing umbilical hernia. Peritoneal space: No free fluid. Lymph nodes: Mildly prominent mesenteric lymph nodes are nonspecific but may be reactive. Vessels: No aneurysm. Bones: Mild degenerative changes of the spine. No acute fracture or bony lesion. Lung bases: Normal. IMPRESSION: No acute abnormality in the abdomen or pelvis.
[2019-02-20 13:58] VITALS: BP 130/72
--- NOTE | 2019-02-20 13:58 | NUR ---
ER DISCHARGE NOTE: Patient is cleared to be discharged per ERMD, pt is aox4, on room air, with stable vital signs. pt was given dc and prescription instructions, pt was able to verbalize understanding, pt id band removed. pt is able to ambulate with steady gait. pt took all belongings.
== END 2019-02-20 13:58 | disposition home or self-care (01) ==
LOC: EMR 12:15
DX: R10.9 Unspecified abdominal pain (principal); Z88.6 Allergy status to analgesic agent; I10 Essential (primary) hypertension; E03.9 Hypothyroidism, unspecified; E11.9 Type 2 diabetes mellitus without complications
CPT/HCPCS: 36415; 74176; 80053; 81003; 83690; 85025; 99284

== ENCOUNTER 2019-03-26 19:13 | Emergency (ER) | payer MEDICARE, MEDICAID ==
[~2019-03-26] VITALS: Ht 160 cm; Wt 61.2 kg
[~2019-03-26 19:13] MED LIST changes: +PEPCID AC10 MG PO
--- NOTE | 2019-03-26 19:37 | NUR ---
ED Nurse Note: Patient presents with complaints of sore throat and mild abdominal pain.
[2019-03-26 19:38] VITALS: BP 152/81
[2019-03-26] MEDS ORDERED: cefTRIAXone 1 GM in NS 55 ML IV STA (19:39)
[2019-03-26] MEDS ORDERED: Solu-MEDROL 125mg Inj IVP ONE (19:45)
[2019-03-26] MEDS ORDERED: Acetaminophen 500mg (ES) tab ORAL ONE (19:45)
--- NOTE | 2019-03-26 19:49 | Emergency Room Report ---
History of Present Illness General Chief Complaint: Generalized Weakness Source: Patient Present Illness HPI The patient presents with 2 days of illness. She is complaining about a sore throat and swelling of her tonsils. She has some difficulty swallowing and has not been able to keep up with oral hydration. She also has a history of diabetes. She has not been able to check her blood sugars because the battery is run out of her machine. She is on oral medication and not on insulin. The patient is also treated for hypertension. She is felt weakness and almost passing out when she stands up quickly at this time. She denies any chest pain , shortness of breath, nausea, vomiting, diarrhea, dysuria. Her muscles and joints are somewhat achy. The patient is disabled from sciatica and diabetes. The sciatic pain is unchanged at this time. It involves her right leg. Diabetes and hypertension Allergies: Coded Allergies: IBUPROFEN (Verified Allergy, Unknown, 02/23/18) Patient History Past Medical History: see triage record Social History: Denies: smoking, drug use Social History Narrative Born in [facility] -does not work at this time Now: No Reviewed Nursing Documentation: PMH: Agreed; PSxH: Agreed Nursing Documentation-PMH Hx Cardiac Problems: No - hypothyroidism Hx Hypertension: Yes Hx Diabetes: Yes Hx Cancer: No Hx Gastrointestinal Problems: Yes Hx Cerebrovascular Accident: No Review of Systems All Other Systems: negative except mentioned in HPI Physical Exam Vital Signs Date Time Temp Pulse Resp B/P (MAP) Pulse Ox O2 Delivery O2 Flow Rate FiO2 03/26/19 19:20 98.2 84 16 152/81 (104) 98 Room Air Sp02 EP Interpretation: reviewed, normal General Appearance: well appearing, no apparent distress, GCS 15 Head: normocephalic, atraumatic Eyes: bilateral eye normal inspection, bilateral eye PERRL, bilateral eye EOMI ENT: no angioedema, moist mucus membranes, pharyngeal erythema, tonsillar exudate Neck: supple, tender - Anteriorly Respiratory: lungs clear, normal breath sounds Cardiovascular #1: regular rate, rhythm Cardiovascular #2: 2+ radial (R) Gastrointestinal: normal inspection, normal bowel sounds, non tender, no mass, non-distended Musculoskeletal: back normal, normal range of motion Neurologic: alert, oriented x3, grossly normal Psychiatric: mood/affect normal Skin: no rash Medical Decision Making Diagnostic Impression: Primary Impression: Exudative pharyngitis Additional Impressions: Hyperglycemia Hypokalemia Dehydration ER Course Diabetic patient with sore throat and near syncope with standing up. Differential includes DKA, hyperglycemia, electrolyte imbalance, dehydration, strep pharyngitis amongst others. Evaluation with EKG, and labs. The patient will be treated with IV hydration, Tylenol, methylprednisolone and Rocephin. Due to the dizziness this is a more complicated patient than just pharyngitis. Also she has the comorbidity of diabetes. Patient placed on occupational analyst. EKG with sinus rhythm left anterior fascicular block and LVH with nonspecific ST -T wave changes. White count normal without left shift. CMP with slightly low potassium and elevated blood glucose. Improved with fluids and medications. Accucheck improved. Discussed outpatient observation and treatment. Patient stable for outpatient observation and treatment. Laboratory Tests Test 03/26/19 19:52 White Blood Count 9.1 K/UL (4.8-10.8) Red Blood Count 4.51 M/UL (4.20-5.40) Hemoglobin 13.6 G/DL (12.0-16.0) Hematocrit 38.9 % (37.0-47.0) Mean Corpuscular Volume 86 FL (80-99) Mean Corpuscular Hemoglobin 30.1 PG (27.0-31.0) Mean Corpuscular Hemoglobin Concent 34.9 G/DL (32.0-36.0) Red Cell Distribution Width 10.6 % (11.6-14.8) L Platelet Count 366 K/UL (150-450) Mean Platelet Volume 5.4 FL (6.5-10.1) L Neutrophils (%) (Auto) 47.7 % (45.0-75.0) Lymphocytes (%) (Auto) 42.2 % (20.0-45.0) Monocytes (%) (Auto) 7.1 % (1.0-10.0) Eosinophils (%) (Auto) 2.2 % (0.0-3.0) Basophils (%) (Auto) 0.9 % (0.0-2.0) Urine Color Pale yellow Urine Appearance Clear Urine pH 7 (4.5-8.0) Urine Specific [place] 1.010 (1.005-1.035) Urine Protein Negative (NEGATIVE) Urine Glucose (UA) Negative (NEGATIVE) Urine Ketones Negative (NEGATIVE) Urine Blood Negative (NEGATIVE) Urine Nitrite Negative (NEGATIVE) Urine Bilirubin Negative (NEGATIVE) Urine Urobilinogen Normal MG/DL (0.0-1.0) Urine Leukocyte Esterase Negative (NEGATIVE) Sodium Level 141 MMOL/L (136-145) Potassium Level 3.3 MMOL/L (3.5-5.1) L Chloride Level 102 MMOL/L (98-107) Carbon Dioxide Level 28 MMOL/L (21-32) Anion Gap 11 mmol/L (5-15) Blood Urea Nitrogen 12 mg/dL (7-18) Creatinine 0.7 MG/DL (0.55-1.30) Estimate Glomerular Filtration Rate > 60 mL/min (>60) Glucose Level 251 MG/DL (74-106) H Calcium Level 8.9 MG/DL (8.5-10.1) Total Bilirubin 0.3 MG/DL (0.2-1.0) Aspartate Amino Transferase (AST) 18 U/L (15-37) Alanine Aminotransferase (ALT) 25 U/L (12-78) Alkaline Phosphatase 102 U/L (46-116) Total Creatine Kinase 30 U/L (26-308) Troponin I 0.001 ng/mL (0.000-0.056) Total Protein 7.0 G/DL (6.4-8.2) Albumin 3.7 G/DL (3.4-5.0) Globulin 3.3 g/dL Albumin/Globulin Ratio 1.1 (1.0-2.7) EKG Diagnostic Results Rate: normal Rhythm: NSR ST Segments: no acute changes - Left ventricular hypertrophy Rhythm Strip Diag. Results EP Interpretation: yes Rhythm: NSR, no PVC's, no ectopy Last Vital Signs Date Time Temp Pulse Resp B/P (MAP) Pulse Ox O2 Delivery O2 Flow Rate FiO2 03/26/19 21:36 98.2 64 13 142/77 97 Room Air Status: improved Disposition: HOME, SELF-CARE Condition: Improved Luciano Rose MD Mar 26, 2019 19:49
[2019-03-26 20:16] LABS: APPEARANCE,URINE CLEAR; BILIRUBIN, URINE NEGATIVE (NEGATIVE); COLOR,URINE PALE YELLOW; GLUCOSE, URINE (UA) NEGATIVE (NEGATIVE); KETONES,URINE NEGATIVE (NEGATIVE); LEUKOCYTE ESTERASE ,URINE NEGATIVE (NEGATIVE); NITRITE,URINE NEGATIVE (NEGATIVE); PH,URINE 7 (4.5-8.0); PROTEIN,URINE NEGATIVE (NEGATIVE); UROBILINOGEN,URINE NORMAL MG/DL (0.0-1.0)
[2019-03-26 20:19] LABS: ANION GAP 11 mmol/L (5-15); BLOOD UREA NITROGEN 12 mg/dL (7-18); CALCIUM 8.9 MG/DL (8.5-10.1); CARBON DIOXIDE 28 MMOL/L (21-32); CHLORIDE 102 MMOL/L (98-107); CREATININE 0.7 MG/DL (0.55-1.30); POTASSIUM 3.3 MMOL/L (3.5-5.1); SODIUM 141 MMOL/L (136-145)
[2019-03-26 20:23] LABS: ALANINE AMINOTRANSFERASE 25 U/L (12-78); ALBUMIN 3.7 G/DL (3.4-5.0); ALBUMIN/GLOBULIN RATIO 1.1 (1.0-2.7); ALKALINE PHOSPHATASE 102 U/L (46-116); ASPARTATE AMINO TRANSFERASE 18 U/L (15-37); BILIRUBIN,TOTAL 0.3 MG/DL (0.2-1.0); CREATINE KINASE 30 U/L (26-308)
[2019-03-26 20:26] LABS: BASOPHILS % (AUTO) 0.9 % (0.0-2.0); EOSINOPHILS % (AUTO) 2.2 % (0.0-3.0); HEMATOCRIT 38.9 % (37.0-47.0); HEMOGLOBIN 13.6 G/DL (12.0-16.0); LYMPHOCYTES % (AUTO) 42.2 % (20.0-45.0); MEAN CORPUSCULAR VOLUME 86 FL (80-99); MONOCYTES % (AUTO) 7.1 % (1.0-10.0); NEUTROPHILS % (AUTO) 47.7 % (45.0-75.0); PLATELET COUNT 366 K/UL (150-450); RED BLOOD COUNT 4.51 M/UL (4.20-5.40); RED CELL DISTRIBUTION WIDTH 10.6 % (11.6-14.8); WHITE BLOOD COUNT 9.1 K/UL (4.8-10.8)
[2019-03-26 21:15] VITALS: BP 142/77
--- NOTE | 2019-03-26 21:15 | NUR ---
ED Nurse Note: Patient able to ambulate with steady gait, no complaints at this time. vital signs stable and updated.
--- NOTE | 2019-03-26 21:35 | NUR ---
ED Nurse Note: Patient has been discharge per ermd, patient verbalized understanding of discharge instructions. Patient ID band removed, IV removed. Patient discharged with all personal belongings to be picked up by her son.
[2019-03-26 21:36] VITALS: BP 142/77
== END 2019-03-26 21:39 | disposition home or self-care (01) ==
LOC: EMR 19:36
DX: J02.9 Acute pharyngitis, unspecified (principal); E11.65 Type 2 diabetes mellitus with hyperglycemia; E87.6 Hypokalemia; E86.0 Dehydration; E03.9 Hypothyroidism, unspecified; Z88.6 Allergy status to analgesic agent
CPT/HCPCS: 36415; 80053; 81003; 82550; 82962; 84484; 85025; 93005; 96361; 96365; 96375; 99284; J0696; J2930; J8499

== ENCOUNTER 2019-04-20 19:17 | Emergency (ER) | payer MEDICARE, MEDICAID ==
[~2019-04-20] VITALS: Ht 154.9 cm; Wt 72.6 kg
[2019-04-20 19:24] VITALS: BP 151/83
--- NOTE | 2019-04-20 19:30 | NUR ---
ED Nurse Note: Patient walked into ED c/o abdominal swelling, nasuea and dizziness for 1 day.
[2019-04-20] MEDS ORDERED: Mylanta II UD 30ml ORAL ONE (19:45)
[2019-04-20] MEDS ORDERED: Lidocaine 2% Visc 15ml soln ORAL ONE (19:45)
[2019-04-20 20:04] LABS: APPEARANCE,URINE CLEAR; BILIRUBIN, URINE NEGATIVE (NEGATIVE); COLOR,URINE PALE YELLOW; GLUCOSE, URINE (UA) NEGATIVE (NEGATIVE); KETONES,URINE NEGATIVE (NEGATIVE); LEUKOCYTE ESTERASE ,URINE 1+ (NEGATIVE); NITRITE,URINE NEGATIVE (NEGATIVE); PH,URINE 6.5 (4.5-8.0); PROTEIN,URINE NEGATIVE (NEGATIVE); UROBILINOGEN,URINE NORMAL MG/DL (0.0-1.0)
[2019-04-20 20:12] LABS: BASOPHILS % (AUTO) 0.9 % (0.0-2.0); EOSINOPHILS % (AUTO) 1.7 % (0.0-3.0); HEMATOCRIT 41.5 % (37.0-47.0); HEMOGLOBIN 14.3 G/DL (12.0-16.0); LYMPHOCYTES % (AUTO) 36.5 % (20.0-45.0); MEAN CORPUSCULAR VOLUME 87 FL (80-99); PLATELET COUNT 423 K/UL (150-450); RED BLOOD COUNT 4.77 M/UL (4.20-5.40); RED CELL DISTRIBUTION WIDTH 10.9 % (11.6-14.8); WHITE BLOOD COUNT 11.8 K/UL (4.8-10.8)
[2019-04-20 20:28] LABS: ANION GAP 9 mmol/L (5-15); BLOOD UREA NITROGEN 11 mg/dL (7-18); CALCIUM 9.5 MG/DL (8.5-10.1); CARBON DIOXIDE 29 MMOL/L (21-32); CHLORIDE 102 MMOL/L (98-107); CREATININE 0.8 MG/DL (0.55-1.30); POTASSIUM 3.4 MMOL/L (3.5-5.1); SODIUM 140 MMOL/L (136-145)
[2019-04-20 20:33] LABS: ALANINE AMINOTRANSFERASE 29 U/L (12-78); ALBUMIN 4.1 G/DL (3.4-5.0); ALKALINE PHOSPHATASE 115 U/L (46-116); ASPARTATE AMINO TRANSFERASE 20 U/L (15-37); BILIRUBIN,TOTAL 0.3 MG/DL (0.2-1.0)
--- NOTE | 2019-04-20 21:44 | Emergency Room Report ---
History of Present Illness General Chief Complaint: Abdominal Pain Source: Patient Present Illness HPI 53 YO Female presents to the ED c/o Nausea and Diarrhea Since yesterday with some dizziness and having abdominal bloating/swelling on the left side. She denies episodes of vomiting, but reports decreased appetite due to nausea. Pt. reports currently 0/10 in severity ( No) pain but reports having 4/10 in severity left sided abdominal pain earlier today. pt. reports diarrhea has resolved since today. Pt. reports having similar symptoms last month but never followed up. She states she has hx of DM but hasn't been checking her sugar at home due to malfunctioning glucometer. She Denies fevers, chills, recent travel or ill contacts with similar symptoms. Denies BECERRA, visual changes, ringing in the ears, or recent head injury. pt. denies syncope/LOC, palpitations , CP or shortness of breath. Denies dysuria, hematuria, urinary frequency or urgency. No other aggravating or relieving factors at this time. Denies vertigo , unilateral weakness, or significant weakness or loss of gross motor movements of the extremities. Denies paresthesias. Allergies: Coded Allergies: IBUPROFEN (Verified Allergy, Unknown, 02/23/18) Patient History Past Medical History: see triage record Past Surgical History: none Pertinent Family History: none Last Menstrual Period: OVARIES REMOVED Now: No Immunizations: UTD Reviewed Nursing Documentation: PMH: Agreed; PSxH: Agreed Nursing Documentation-PMH Past Medical History: No History, Except For Hx Hypertension: Yes Hx Diabetes: Yes Hx Cancer: No Hx Gastrointestinal Problems: Yes Hx Cerebrovascular Accident: No Review of Systems All Other Systems: negative except mentioned in HPI Physical Exam Vital Signs Date Time Temp Pulse Resp B/P (MAP) Pulse Ox O2 Delivery O2 Flow Rate FiO2 04/20/19 19:24 98.4 68 16 151/83 (105) 98 Room Air Sp02 EP Interpretation: reviewed, normal General Appearance: no apparent distress, alert, GCS 15, non-toxic Head: normocephalic, atraumatic Eyes: bilateral eye normal inspection, bilateral eye PERRL, bilateral eye EOMI ENT: hearing grossly normal, normal voice Neck: full range of motion, no meningismus, no bony tend Respiratory: chest non-tender, lungs clear, normal breath sounds, speaking full sentences Cardiovascular #1: regular rate, rhythm, no edema Gastrointestinal: normal bowel sounds, non tender, soft, no peritonitis, non- distended, no guarding Rectal: deferred Genitourinary: normal inspection, no CVA tenderness Musculoskeletal: gait/station normal, normal range of motion, non-tender Neurologic: alert, oriented x3, responsive, motor strength/tone normal, sensory intact, normal gait, speech normal, other, grossly normal Psychiatric: judgement/insight normal Lymphatic: no adenopathy Medical Decision Making PA Attestation Dr. Avelar is my supervising Physician whom patient management has been discussed with. Diagnostic Impression: Primary Impression: Abdominal pain ER Course 53 YO Female presents to the ED c/o Nausea and Diarrhea Since yesterday with some dizziness and having abdominal bloating/swelling on the left side. She denies episodes of vomiting, but reports decreased appetite due to nausea. Pt. reports currently 0/10 in severity ( No) pain but reports having 4/10 in severity left sided abdominal pain earlier today. pt. reports diarrhea has resolved since today. Pt. reports having similar symptoms last month but never followed up. She states she has hx of DM but hasn't been checking her sugar at home due to malfunctioning glucometer. She Denies fevers, chills, recent travel or ill contacts with similar symptoms. Denies BECERRA, visual changes, ringing in the ears, or recent head injury. pt. denies syncope/LOC, palpitations , CP or shortness of breath. Denies dysuria, hematuria, urinary frequency or urgency. No other aggravating or relieving factors at this time. Denies vertigo , unilateral weakness, or significant weakness or loss of gross motor movements of the extremities. Denies paresthesias. Ddx considered but are not limited to UTI, hyperglycemia, Diverticulitis, acute appy, diarrhea,UC, PUD, GE, pancreatitis, gallstone, Vital signs: are WNL, pt. is afebrile H&PE are most consistent with recurrent abdominal pain, bloating and nausea in a pt. with DM. will do basic labs and check hydration status. --Pt is NAD, non- toxic in appearance. No PE evidence to suggest acute abdomen. No focal neurological Deficits. --- Patient just had full laboratory work-up with CT imaging last month for the exact same symptoms I do not feel repeat radiation would be of benefit to this patient at this time and less come back showing significant abnormality. ORDERS: CBC, CMP, lipase, UA: WNL ED INTERVENTIONS: -- 1000NS, Mylanta and lidocaine viscous PO -I do not identify an emergent condition at this time. With current presentation , pt. is stable for close outpatient follow up and conservative treatment. D/ w pt. to return promptly to ED with worsening or new symptoms.- Pt. verbalizes' understanding and agreement with proposed treatment plan.proposed treatment plan. DISCHARGE: At this time pt. is stable for d/c to home. Will provide printed patient care instructions, and any necessary prescriptions. Care plan and follow up instructions have been discussed with the patient prior to discharge. Labs Test 04/20/19 19:40 04/20/19 19:45 Urine Color Pale yellow Urine Appearance Clear Urine pH 6.5 (4.5-8.0) Urine Specific [place] 1.005 (1.005-1.035) Urine Protein Negative (NEGATIVE) Urine Glucose (UA) Negative (NEGATIVE) Urine Ketones Negative (NEGATIVE) Urine Blood Negative (NEGATIVE) Urine Nitrite Negative (NEGATIVE) Urine Bilirubin Negative (NEGATIVE) Urine Urobilinogen Normal MG/DL (0.0-1.0) Urine Leukocyte Esterase 1+ (NEGATIVE) Urine RBC 0-2 /HPF (0 - 2) Urine WBC 0-2 /HPF (0 - 2) Urine Squamous Epithelial Cells Few /LPF (NONE/OCC) Urine Bacteria Few /HPF (NONE) White Blood Count 11.8 K/UL (4.8-10.8) Red Blood Count 4.77 M/UL (4.20-5.40) Hemoglobin 14.3 G/DL (12.0-16.0) Hematocrit 41.5 % (37.0-47.0) Mean Corpuscular Volume 87 FL (80-99) Mean Corpuscular Hemoglobin 30.0 PG (27.0-31.0) Mean Corpuscular Hemoglobin Concent 34.5 G/DL (32.0-36.0) Red Cell Distribution Width 10.9 % (11.6-14.8) Platelet Count 423 K/UL (150-450) Mean Platelet Volume 5.3 FL (6.5-10.1) Neutrophils (%) (Auto) 56.0 % (45.0-75.0) Lymphocytes (%) (Auto) 36.5 % (20.0-45.0) Monocytes (%) (Auto) 5.0 % (1.0-10.0) Eosinophils (%) (Auto) 1.7 % (0.0-3.0) Basophils (%) (Auto) 0.9 % (0.0-2.0) Sodium Level 140 MMOL/L (136-145) Potassium Level 3.4 MMOL/L (3.5-5.1) Chloride Level 102 MMOL/L (98-107) Carbon Dioxide Level 29 MMOL/L (21-32) Anion Gap 9 mmol/L (5-15) Blood Urea Nitrogen 11 mg/dL (7-18) Creatinine 0.8 MG/DL (0.55-1.30) Estimat Glomerular Filtration Rate > 60 mL/min (>60) Glucose Level 161 MG/DL (74-106) Calcium Level 9.5 MG/DL (8.5-10.1) Total Bilirubin 0.3 MG/DL (0.2-1.0) Aspartate Amino Transf (AST/SGOT) 20 U/L (15-37) Alanine Aminotransferase (ALT/SGPT) 29 U/L (12-78) Alkaline Phosphatase 115 U/L (46-116) Total Protein 8.3 G/DL (6.4-8.2) Albumin 4.1 G/DL (3.4-5.0) Globulin 4.2 g/dL Albumin/Globulin Ratio 1.0 (1.0-2.7) Lipase 225 U/L (73-393) Last Vital Signs Date Time Temp Pulse Resp B/P (MAP) Pulse Ox O2 Delivery O2 Flow Rate FiO2 04/20/19 19:51 68 16 Room Air 04/20/19 19:24 98.4 151/83 98 Disposition: HOME, SELF-CARE Condition: Stable Scripts Ranitidine Hcl* (ZANTAC*) 150 Mg Tablet 150 MG ORAL TWICE A DAY for 14 Days, #28 TAB Prov: Odalys Zuniga 04/20/19 Simethicone* (SIMETHICONE*) 80 Mg Tab.chew 80 MG ORAL Q8H PRN for GAS PAIN, #20 TAB 0 Refills Prov: Odalys Zuniga 04/20/19 Patient Instructions: Abdominal Pain, Adult Additional Instructions: . ~ ~ An emergent medical condition has not been identified based on this patients presentation, exam and any necessary testing/imaging. The patient is determined to be stable for outpatient follow-up and management of symptoms by a primary care provider. Take medications as directed Follow up with a Primary Care Provider in 3-5 days FOR GI SPECIALIST REFERRAL ---- even if your symptoms have resolved. --Please review list of primary care clinics, if you do not already have a primary care provider Return sooner to ED if new symptoms occur, or current symptoms become worse. - Please note that this Emergency Department Report was dictated using [employer] Solutionshe[employer] operator technology software, occasionally this can lead to erroneous entry secondary to interpretation by the dictation equipment. Odalys Zuniga Apr 20, 2019 21:43
[2019-04-20] MEDS ORDERED: SIMETHICONE80 MG ORAL (21:45)
[2019-04-20] MEDS ORDERED: ZANTAC150 MG ORAL (21:45)
[2019-04-20 22:05] VITALS: BP 151/83
== END 2019-04-20 22:05 | disposition home or self-care (01) ==
LOC: EMR 21:45
DX: R10.9 Unspecified abdominal pain (principal); R19.7 Diarrhea, unspecified; R42 Dizziness and giddiness; E11.9 Type 2 diabetes mellitus without complications; I10 Essential (primary) hypertension; Z88.6 Allergy status to analgesic agent
CPT/HCPCS: 36415; 80053; 81003; 83690; 85025; 96360; 99284

== ENCOUNTER 2020-08-10 20:57 | Emergency (ER) | payer MEDICARE, MEDICAID ==
[~2020-08-10] VITALS: Ht 154.9 cm; Wt 72.6 kg
[~2020-08-10 20:57] MED LIST changes: +AMLODIPINE BESYL5 MG ORAL; +PHENAZOPYRIDIN100 MG ORAL; +SIMETHICONE80 MG ORAL; +ZANTAC150 MG ORAL
[2020-08-10 21:15] VITALS: BP 134/84
[2020-08-10] MEDS ORDERED: Omnipaque-300 100ml vial INJ PRN (21:30)
[2020-08-10 21:37] LABS: EOSINOPHILS % (AUTO) 1.9 % (0.0-3.0); HEMATOCRIT 42.4 % (37.0-47.0); HEMOGLOBIN 14.4 G/DL (12.0-16.0); LYMPHOCYTES % (AUTO) 30.6 % (20.0-45.0); MEAN CORPUSCULAR VOLUME 90 FL (80-99); NEUTROPHILS % (AUTO) 60.5 % (45.0-75.0); PLATELET COUNT 335 K/UL (150-450); RED BLOOD COUNT 4.72 M/UL (4.20-5.40); WHITE BLOOD COUNT 12.7 K/UL (4.8-10.8)
--- NOTE | 2020-08-10 21:40 | Emergency Room Report ---
History of Present Illness General Chief Complaint: Female Urogenital Problems Present Illness HPI 54-year-old female with past medical history of hypertension, diabetes high cho lesterol, presents with hematuria since this morning. Patient denies recent trauma. She states that she had a mechanical fall greater than 1 month ago but had no subsequent head trauma, syncope, headache, blurry vision abdominal pain, melena, hematochezia., She states she has some mild dysuria but denies any nausea, vomiting, fever, chills, fatigue, chest pain, back pain, shortness of breath, or any other symptoms. Denies blood thinners The patient's symptoms were gradual onset, severity was moderate, duration since 1 day. Quality: Bloody Past medical history: Diabetes, hypertension, high cholesterol Past surgical history: Hysterectomy Smoking: Denies Alcohol use: Denies Drug use: Denies Review of systems: CONST: No fevers or chills, No night sweats PULMONARY: No productive cough, No shortness of breath CARDIAC: No chest pain, No palpitations GI: No vomiting, No diarrhea , No melena_or_BRBPR : No dysuria, ++ hematuria, No discharge NEURO: No new_focal_weakness_or_numbness, No confusion, No vision changes 14 point Review of Systems is otherwise negative except per HPI Physical Exam: GENERAL: Awake_alert_ nontoxic, no acute distress Spo2 98% on RA -normal EYES: Extraocular muscles are intact. Conjunctivae clear. Lids without swelling ENT: External nose and ear normal_in_appearance. Oropharynx clear. Head_atraumatic, Moist_oral_mucosa NECK: No JVD. No meningismus. No thyromegaly. Supple. Trachea midline RESP: Normal respiratory effort. Symmetric rise. No stridor. Clear_to_auscultation_No_rales_No_wheezes CARDIAC: Regular rate and regular rhytm. No_significant pedal edema. ABDOMEN: Soft. Nondistended. Nontender_No_rebound_or_guarding. No palpable abdominal mass. MSK: Normal muscle tone, without rigidity. Extremities without asymmetric deformity or swelling. SKIN: Warm and dry. No visible cyanosis or pallor NEUROLOGIC: Alert, oriented x3. Motor_and_sensation_grossly_intact. No truncal ataxia. Gait_normal Psych: Normal mood and affect, normal judgment and insight - COORDINATION OF CARE Case was discussed with: Patient Any labs and imaging that were ordered were interpreted as part of the medical decision making: Medical Decision Making/Plan: Differential diagnosis includes hemorrhagic cystitis, cholecystitis, choledocholithiasis, hepatitis, small bowel obstruction, volvulus, AAA, pancreatitis, atypical appendicitis, gastroparesis, gastritis, peptic ulcer dis ease, among others. Patient is well appearing with stable vital signs. Abdominal exam is non peritoneal with no guarding or rebound. Labs show [] (Chrissy Murdock D.O.) Allergies: Coded Allergies: IBUPROFEN (Verified Allergy, Unknown, 02/23/18) COVID-19 Screening Contact w/high risk pt: No Experienced COVID-19 symptoms?: No COVID-19 Testing performed DELIVERY AND MAIL SORTER: No (Chrissy Murdock D.O.) Nursing Documentation-PMH Hx Hypertension: Yes Hx Diabetes: Yes Hx Cancer: No Hx Gastrointestinal Problems: Yes Hx Cerebrovascular Accident: No (Chrissy Murdock D.O.) Physical Exam Vital Signs Date Time Temp Pulse Resp B/P (MAP) Pulse Ox O2 Delivery O2 Flow Rate FiO2 08/10/20 21:02 98.4 98 16 134/84 (101) 97 Room Air Sp02 EP Interpretation: reviewed, normal (Chrissy Murdock D.O.) Medical Decision Making Diagnostic Impression: Primary Impression: Abdominal pain Additional Impression: Hematuria ER Course Patient was endorsed to me by pending CT imaging studies. With patient having some hematuria. Patient has a benign abdomen and CT imaging showed 1.7 cm left adrenal adenoma, normal appendix, some diverticulosis, no acute intra-abdominal or pelvic finding with slightly thick-walled bladder some bladder thickening consistent with urinary infection. See radiology report for full details. Patient given prescription for oral antibiotics. She is advised to follow-up with primary care physician for recheck. This medical record is generated with [employer] executive talent acquisition consultant software. There may be some executive talent acquisition consultant discrepancies related to use of this software (Shahbaz Barreto MD) Reevaluation Time: 21:40 Last Vital Signs Date Time Temp Pulse Resp B/P (MAP) Pulse Ox O2 Delivery O2 Flow Rate FiO2 08/10/20 21:02 98.4 98 16 134/84 (101) 97 Room Air (Chrissy Murdock D.O.) Status: improved (Shahbaz Barreto MD) Disposition: HOME, SELF-CARE Admit Decision Time: 21:40 (Chrissy Murdock D.O.) Condition: Stable Signed Out To: Dr Barreto (Chrissy Murdock D.O.) Referrals: [facility],REFERRING (PCP) Chrissy Murdock D.O. Aug 10, 2020 21:40 Shahbaz Barreto MD Aug 10, 2020 22:48
[2020-08-10 21:42] LABS: APPEARANCE,URINE TURBID; BILIRUBIN, URINE NEGATIVE (NEGATIVE); GLUCOSE, URINE (UA) 4+ (NEGATIVE); KETONES,URINE 1+ (NEGATIVE); LEUKOCYTE ESTERASE ,URINE 1+ (NEGATIVE); NITRITE,URINE NEGATIVE (NEGATIVE); PH,URINE 7 (4.5-8.0); PROTEIN,URINE 3+ (NEGATIVE); UROBILINOGEN,URINE NORMAL MG/DL (0.0-1.0)
[2020-08-10 21:45] LABS: COLOR,URINE RED
[2020-08-10] MEDS ORDERED: cefTRIAXone 1 GM in NS 55 ML IVPB ONE (21:45)
[2020-08-10 21:52] LABS: ANION GAP 6 mmol/L (5-15); BLOOD UREA NITROGEN 13 mg/dL (7-18); CALCIUM 8.7 MG/DL (8.5-10.1); CARBON DIOXIDE 31 MMOL/L (21-32); CHLORIDE 99 MMOL/L (98-107); CREATININE 0.9 MG/DL (0.55-1.30); POTASSIUM 3.4 MMOL/L (3.5-5.1); SODIUM 136 MMOL/L (136-145)
[2020-08-10 21:57] LABS: ALANINE AMINOTRANSFERASE 59 U/L (12-78); ALBUMIN 3.8 G/DL (3.4-5.0); ALKALINE PHOSPHATASE 143 U/L (46-116); ASPARTATE AMINO TRANSFERASE 33 U/L (15-37); BILIRUBIN,TOTAL 0.3 MG/DL (0.2-1.0)
--- NOTE | 2020-08-10 22:47 | Diagnostic Imaging Report ---
CT abdomen pelvis with contrast History: Abdominal pain Technique: Axial CT of the abdomen and pelvis using 100 cc Omnipaque 300 IV contrast. Coronal, sagittal reformatted images are obtained. Technique more: CTDI is 9.2 mGy and DLP is 492.4 mGy-cm. Technique more: One or more of the following dose reduction techniques were used: automated exposure control, adjustment of the mA and/or kV according to patient size, use of iterative reconstruction technique. Comparison: 02/20/2019 Findings: Lung bases: Normal Distal heart and esophagus: Small hiatal hernia. Liver: Diffuse fatty infiltration of the liver. Gallbladder: Normal Spleen: Normal Pancreas: Normal Adrenals: 1.7 cm left adrenal low-density adenoma Kidneys: Negative for hydronephrosis or stones. Aorta: Normal caliber. Lymph nodes: Negative Bowel: Partially distended stomach with ingested contents. Caliber of the small bowel loops. Scattered colonic stool. Normal appendix. Rectum is unremarkable. Mild sigmoid diverticulosis. Negative for diverticulitis. Pelvis: Slightly thick-walled urinary bladder. Please clinically correlate to exclude cystitis. Status post hysterectomy. Bones: No lytic or blastic bony lesion. Straightening of the normal cervical lordosis. IMPRESSION: 1. 1.7 cm left adrenal adenoma. 2. Normal appendix. 3. Sigmoid diverticulosis. Negative for diverticulitis. 4. No acute intra-abdominal or pelvic finding.
[2020-08-10] MEDS ORDERED: CEPHALEXIN500 MG ORAL (22:52)
[2020-08-10 23:00] VITALS: BP 128/80
== END 2020-08-10 23:00 | disposition home or self-care (01) ==
LOC: EMR 21:12
DX: R10.9 Unspecified abdominal pain (principal); R31.9 Hematuria, unspecified; I10 Essential (primary) hypertension; E11.9 Type 2 diabetes mellitus without complications; E78.00 Pure hypercholesterolemia, unspecified; Z90.710 Acquired absence of both cervix and uterus
CPT/HCPCS: 36415; 74177; 80053; 81003; 83690; 85025; 96365; 99284; J0696; Q9965

== ENCOUNTER 2020-11-13 09:03 | Emergency (ER) | payer MEDICARE, MEDICAID ==
[~2020-11-13] VITALS: Ht 152.4 cm; Wt 72.6 kg
[2020-11-13 10:10] VITALS: BP 146/93
[2020-11-13 11:09] LABS: BILIRUBIN, URINE NEGATIVE (NEGATIVE); GLUCOSE, URINE (UA) NEGATIVE (NEGATIVE); KETONES,URINE 2+ (NEGATIVE); LEUKOCYTE ESTERASE ,URINE 1+ (NEGATIVE); NITRITE,URINE NEGATIVE (NEGATIVE); PH,URINE 6 (4.5-8.0); PROTEIN,URINE 1+ (NEGATIVE); UROBILINOGEN,URINE NORMAL MG/DL (0.0-1.0)
[2020-11-13 11:11] LABS: APPEARANCE,URINE SLIGHTLY CLOUDY; COLOR,URINE PALE YELLOW
[2020-11-13] MEDS ORDERED: AMOXICILLIN500 MG ORAL (11:45)
== END 2020-11-13 12:00 | disposition home or self-care (01) ==
LOC: EMR 10:41
DX: R50.9 Fever, unspecified (principal)
CPT/HCPCS: 81003; 99283